=== PATIENT | male | born 1985 | race Caucasian/White ===

== ENCOUNTER 2022-12-21 15:17 | Inpatient (IN) | payer OTHER ==
[2022-12-21] MEDS ORDERED: KETOROLAC 15 MG/ML 1 ML VIAL IM STA (16:43)
[2022-12-21 16:51] LABS: Basophils % (A) 0 %; Eosinophils # (A) 0.1 k/uL (0-0.7); Eosinophils % (A) 1 %; HCT 40.7 % (39.0-53.0); HGB 14.2 gm/dL (13.0-17.5); Lymphocytes # (A) 1.5 k/uL (1.0-4.8); Lymphocytes % (A) 7 %; MCH 31.7 pg (25.0-35.0); MCHC 34.8 g/dL (31.0-37.0); MCV 91.2 fL (80.0-100.0); Mean Platelet Volume 8.4; Monocytes # (A) 1.5 k/uL (0-1.0); Monocytes % (A) 8 %; Neutrophils # (A) 16.4 k/uL (1.3-7.7); Neutrophils % (A) 82 %; Platelet Count 240 k/uL (150-450); RBC 4.47 m/uL (4.30-5.90); RDW 11.4 % (11.5-15.5)
--- NOTE | 2022-12-21 16:53 | ED ---
General Adult HPI - General Chief complaint: Skin/Abscess/Foreign Body Stated complaint: L groin pain Time Seen by Provider: 12/21/22 16:10 Source: patient, RN notes reviewed Mode of arrival: ambulatory Limitations: no limitations - History of Present Illness Initial comments: 37-year-old male with no significant past medical history presents to the emergency department with a chief complaint of left gluteal abscess. He reports that he noticed the abscess 5 days ago. He reports worsening pain and tenderness to the area. He denies any known fevers, chills, diaphoresis. He has never had this before. He reports his last bowel movement was this morning was normal for him. - Related Data Home Medications Medication Instructions Recorded Confirmed No Known Home Medications 12/21/22 12/21/22 Allergies Allergy/AdvReac Type Severity Reaction Status Date / Time No Known Allergies Allergy Verified 12/21/22 18:59 Review of Systems ROS Statement: Those systems with pertinent positive or pertinent negative responses have been documented in the HPI. ROS Other: All systems not noted in ROS Statement are negative. Past Medical History Past Medical History: No Reported History History of Any Multi-Drug Resistant Organisms: None Reported Past Surgical History: Orthopedic Surgery Additional Past Surgical History / Comment(s): rt knee Past Psychological History: No Psychological Hx Reported Smoking Status: Never smoker Past Alcohol Use History: None Reported Past Drug Use History: Marijuana General Exam Limitations: no limitations General appearance: alert, in no apparent distress Head exam: Present: atraumatic, normocephalic, normal inspection Eye exam: Present: normal appearance, PERRL, EOMI. Absent: scleral icterus, conjunctival injection, periorbital swelling ENT exam: Present: normal exam, mucous membranes moist Neck exam: Present: normal inspection. Absent: tenderness, meningismus, lymphadenopathy Respiratory exam: Present: normal lung sounds bilaterally. Absent: respiratory distress, wheezes, rales, rhonchi, stridor Cardiovascular Exam: Present: regular rate, normal rhythm, normal heart sounds. Absent: systolic murmur, diastolic murmur, rubs, gallop, clicks GI/Abdominal exam: Present: soft, normal bowel sounds. Absent: distended, tenderness, guarding, rebound, rigid Extremities exam: Present: normal inspection, full ROM, normal capillary refill. Absent: tenderness, pedal edema, joint swelling, calf tenderness Back exam: Present: normal inspection Neurological exam: Present: alert, oriented X3, CN II-XII intact Psychiatric exam: Present: normal affect, normal mood Skin exam: Present: warm, dry, intact, normal color. Absent: rash Course Vital Signs 12/21/22 12/21/22 12/21/22 15:35 18:48 19:37 Temperature 98.2 F 97.7 F 98.6 F Pulse Rate 112 H 98 82 Pulse Rate [ Supine] Respiratory 20 20 14 Rate Blood Pressure 136/73 132/76 126/78 Blood Pressure [Right Arm] O2 Sat by Pulse 98 98 99 Oximetry 12/21/22 21:20 Temperature 100.2 F H Pulse Rate Pulse Rate [ 107 H Supine] Respiratory 18 Rate Blood Pressure Blood Pressure 120/75 [Right Arm] O2 Sat by Pulse 95 Oximetry - Reevaluation(s) Reevaluation #1: 12/21/22 17:[address] Martel, general surgeon on-call who accepts the patient for admission Medical Decision Making - Medical Decision Making Was pt. sent in by a medical professional or institution (, PA, AUTOMOTIVE COLLISION REPAIR INSTRUCTOR, urgent care, hospital, or residential...) When possible be specific @ -[No] Did you speak to anyone other than the patient for history (EMS, parent, family, police, friend...)? What history was obtained from this source @ -[No] Did you review nursing and triage notes (agree or disagree)? Why? @ -[I reviewed and agree with nursing and triage notes] Were old charts reviewed (outside hosp., previous admission, EMS record, old EKG, old radiological studies, urgent care reports/EKG's, residential records)? Report findings @ -[No old charts were reviewed] Differential Diagnosis (chest pain, altered mental status, abdominal pain women, abdominal pain men, vaginal bleeding, weakness, fever, dyspnea, syncope, headache, dizziness, GI bleed, back pain, seizure, CVA, palpatations, mental health, musculoskeletal)? @ -[not applicable] EKG interpreted by me (3pts min.). @ -[As above] X-rays interpreted by me (1pt min.). @ -[None done] CT interpreted by me (1pt min.). @ -[None done] U/S interpreted by me (1pt. min.). @ -[None done] What testing was considered but not performed or refused? (CT, X-rays, U/S, labs)? Why? @ -[None] What meds were considered but not given or refused? Why? @ -[None] Did you discuss the management of the patient with other professionals (professionals i.e. , PA, AUTOMOTIVE COLLISION REPAIR INSTRUCTOR, lab, RT, psych nurse, 7th grade social studies teacher, spot worker, teacher, business services officer, disease case manager)? Give summary @ -[No] Was smoking cessation discussed for >3mins.? @ -[No] Was critical care preformed (if so, how long)? @ -[No] Were there social determinants of health that impacted care today? How? (Homelessness, low income, unemployed, alcoholism, drug addiction, transportation, low edu. Level, literacy, decrease access to med. care, detention, rehab)? @ -[No] Was there de-escalation of care discussed even if they declined (Discuss DNR or withdrawal of care, Hospice)? DNR status @ -[No] What co-morbidities impacted this encounter? (DM, HTN, Smoking, COPD, CAD, Cancer, CVA, ARF, Chemo, Hep., AIDS, mental health diagnosis, sleep apnea, morbid obesity)? @ -[None] Was patient admitted / discharged? Hospital course, mention meds given and route, prescriptions, significant lab abnormalities, going to OR and other pertinent info. @ -admission. This is a 37-year-old male presenting to the emergency department with rectal abscess. He had a thorough history and physical exam performed heart rate is tachycardic however lung sounds are clear to auscultation bilaterally abdomen is soft and nontender. Left gluteal muscle with marked tenderness. Patient had lab work and imaging performed which revealed: CT reveals Phlegmonous mass within the left perirectal region without any organized cessation of fluid Labs remarkable for WBC 20.0, hemoglobin 14.2 BMP unremarkable. I discussed the results in detail with the patient who verbalized understanding and all questions were addressed. He is agreeable with the plan for admission. Case discussed with Dr. Martel, general surgery who agrees and accepts the patient for admission case discussed with Dr. Gallegos who agrees with plan of care. he was started on Zosyn and vancomycin while in the ED. Undiagnosed new problem with uncertain prognosis? @ -[No] Drug Therapy requiring intensive monitoring for toxicity (Heparin, Nitro, Insulin, Cardizem)? @ -[No] Were any procedures done? @ -[No] Diagnosis/symptom? @ - gluteal abscess Acute, or Chronic, or Acute on Chronic? @ -acute Uncomplicated (without systemic symptoms) or Complicated (systemic symptoms)? @ -complicated Side effects of treatment? @ -[No] Exacerbation, Progression, or Severe Exacerbation? @ -[No] Poses a threat to life or bodily function? How? (Chest pain, [place], [place], pneumonia, PE, COPD, DKA, ARF, appy, cholecystitis, CVA, Diverticulitis, Homicidal, Suicidal, threat to staff... and all critical care pts) @ -high likelihood - Lab Data Result diagrams: 12/21/22 16:26 12/21/22 16:26 Lab Results 12/21/22 12/21/22 Range/Units 16:26 16:26 WBC 20.0 H (3.8-10.6) k/uL RBC 4.47 (4.30-5.90) m/uL Hgb 14.2 (13.0-17.5) gm/dL Hct 40.7 (39.0-53.0) % MCV 91.2 (80.0-100.0) fL MCH 31.7 (25.0-35.0) pg MCHC 34.8 (31.0-37.0) g/dL RDW 11.4 L (11.5-15.5) % Plt Count 240 (150-450) k/uL MPV 8.4 Neutrophils % 82 % Lymphocytes % 7 % Monocytes % 8 % Eosinophils % 1 % Basophils % 0 % Neutrophils # 16.4 H (1.3-7.7) k/uL Lymphocytes # 1.5 (1.0-4.8) k/uL Monocytes # 1.5 H (0-1.0) k/uL Eosinophils # 0.1 (0-0.7) k/uL Basophils # 0.0 (0-0.2) k/uL Sodium 137 (137-145) mmol/L Potassium 3.9 (3.5-5.1) mmol/L Chloride 99 (98-107) mmol/L Carbon Dioxide 26 (22-30) mmol/L Anion Gap 12 mmol/L BUN 16 (9-20) mg/dL Creatinine 1.14 (0.66-1.25) mg/dL Est GFR (CKD-EPI)AfAm >90 (>60 ml/min/1.73 sqM) Est GFR (CKD-EPI)NonAf 82 (>60 ml/min/1.73 sqM) Glucose 102 H (74-99) mg/dL Calcium 9.5 (8.4-10.2) mg/dL Disposition Clinical Impression: Perirectal abscess Disposition: ADMITTED IP TO THIS HOSP Condition: Fair Time of Disposition: 17:53
[2022-12-21 17:11] LABS: African American GFR (CKD) >90 (>60 ml/min/1.73 sqM); Anion Gap 12 mmol/L; Blood Urea Nitrogen 16 mg/dL (9-20); Calcium 9.5 mg/dL (8.4-10.2); Carbon Dioxide 26 mmol/L (22-30); Chloride 99 mmol/L (98-107); Glucose 102 mg/dL (74-99); Non-African American GFR(CKD) 82 (>60 ml/min/1.73 sqM); Potassium 3.9 mmol/L (3.5-5.1); Sodium 137 mmol/L (137-145)
--- NOTE | 2022-12-21 17:28 | CT ---
EXAMINATION TYPE: CT abdomen pelvis wo con CT DLP: 696.2 mGycm, Automated exposure control for dose reduction was used. DATE OF EXAM: 12/21/2022 5:04 PM COMPARISON: None CLINICAL INDICATION:Male, 37 years old with history of gluteal abscess; pain and lump around rectal a hemant TECHNIQUE: Axial CT of the abdomen and pelvis. Sagittal and coronal reformats were created on a [employer] workstation. Contrast used: None Oral contrast used: without Oral Contrast FINDINGS: LOWER CHEST: Unremarkable ABDOMEN LIVER: Unremarkable GALLBLADDER AND BILE DUCTS: Unremarkable. PANCREAS: Unremarkable. SPLEEN: Unremarkable. ADRENAL GLANDS: Unremarkable. KIDNEYS AND URETERS: No evidence of hydronephrosis or renal calculus. The ureters are unremarkable. PELVIS BLADDER: Unremarkable REPRODUCTIVE: Unremarkable. ABDOMEN & PELVIS STOMACH AND BOWEL: No evidence of bowel obstruction. The appendix normal. PERITONEUM/RETROPERITONEUM: No evidence of pneumoperitoneum or free fluid. VASCULATURE: No evidence of aortic aneurysm. MUSCULOSKELETAL: No acute osseous abnormalities LYMPH NODES: No gross evidence for lymphadenopathy. SOFT TISSUE/ABDOMINAL WALL: There is inflammation changes on the left perineal region on the rectum. No definitive organizing flu id collection. Area measures roughly 5.2 x 2.3 x 2.6 cm. Fat-containing umbilical hernia. IMPRESSION: 1. Phlegmonous mass within the left perirectal region without definitive organizing fluid collection . Evaluation is limited without IV contrast. 2. No acute intra-abdominal process.
[2022-12-21] MEDS ORDERED: PIPERACILLIN-TAZOBACTAM 3.375 GM in SODIUM CHLORIDE 0.9% 100 ML IVPB STA (17:43)
[2022-12-21] MEDS ORDERED: VANCOMYCIN 1,000 MG in SODIUM CHLORIDE 0.9% 250 ML IVPB STA (17:44)
[2022-12-21] MEDS ORDERED: NALOXONE 0.4 MG/ML 1 ML VIAL IV PRN (17:50)
[2022-12-21] MEDS ORDERED: VANCOMYCIN 1,500 MG in SODIUM CHLORIDE 0.9% 500 ML 500 ML IVPB STA (17:51)
[2022-12-21] MEDS ORDERED: ACETAMINOPHEN TAB 325 MG TAB PO PRN (17:51)
[2022-12-21] MEDS: SODIUM CHLORIDE 0.9% 1,000 ML IV SCH (18:32)
[2022-12-21] MEDS: MORPHINE SULFATE 4 MG/ML SYRINGE IV PRN ×2 (21:05→23:58)
[2022-12-22] MEDS: MORPHINE SULFATE 4 MG/ML SYRINGE IV PRN ×4 (03:11→13:18)
[2022-12-22 06:24] LABS: Basophils # (A) 0.1 k/uL (0-0.2); Basophils % (A) 0 %; Eosinophils # (A) 0.1 k/uL (0-0.7); Eosinophils % (A) 0 %; HGB 14.3 gm/dL (13.0-17.5); Lymphocytes # (A) 1.7 k/uL (1.0-4.8); Lymphocytes % (A) 10 %; MCH 31.6 pg (25.0-35.0); MCHC 34.1 g/dL (31.0-37.0); MCV 92.6 fL (80.0-100.0); Mean Platelet Volume 7.9; Monocytes # (A) 1.5 k/uL (0-1.0); Monocytes % (A) 9 %; Neutrophils # (A) 14.2 k/uL (1.3-7.7); Neutrophils % (A) 79 %; Platelet Count 241 k/uL (150-450); RBC 4.54 m/uL (4.30-5.90); RDW 11.4 % (11.5-15.5); WBC 17.9 k/uL (3.8-10.6)
[2022-12-22 06:32] LABS: African American GFR (CKD) >90 (>60 ml/min/1.73 sqM); Anion Gap 8 mmol/L; Blood Urea Nitrogen 11 mg/dL (9-20); Carbon Dioxide 29 mmol/L (22-30); Chloride 100 mmol/L (98-107); Glucose 96 mg/dL (74-99); Non-African American GFR(CKD) >90 (>60 ml/min/1.73 sqM); Sodium 137 mmol/L (137-145)
[2022-12-22] MEDS: SODIUM CHLORIDE 0.9% 1,000 ML IV SCH ×2 (07:50→20:49)
[2022-12-22] MEDS ORDERED: VANCOMYCIN 1,500 MG in SODIUM CHLORIDE 0.9% 500 ML 500 ML IVPB SCH (08:00)
[2022-12-22] MEDS: HYDROcodone/APAP 5-325MG 1 EACH TAB PO PRN ×3 (11:16→20:05)
[2022-12-22] MEDS: AMPICILLIN-SULBACTAM 3 GM in SODIUM CHLORIDE 0.9% 100 ML IVPB SCH ×2 (14:19→20:06)
[2022-12-22] MEDS ORDERED: IOPAMIDOL CONTRAST (ORAL USE) VIAL PO PRN (14:49)
[2022-12-22] MEDS: VANCOMYCIN 1,500 MG in SODIUM CHLORIDE 0.9% 500 ML 500 ML IVPB SCH ×2 (15:23→23:56)
--- NOTE | 2022-12-22 15:54 | P.GSHP ---
History of Present Illness H&P Date: 12/22/22 CHIEF COMPLAINT: Perirectal pain HISTORY OF PRESENT ILLNESS: This is a 37-year-old male who presented to hospital with complaints of perirectal pain on the left side for the last 5 days. Patient is noticed swelling and increasing pain in the left perirectal area. He reports no drainage. White count was elevated at 20 down to 17.9. He is on IV antibiotics. He did have a low-grade temp of 100.2 and was tachycardic. Computed tomography scan had shown evidence of a phlegmonous mass in the left perirectal region withfluid collection noted. Patient reports that he has had increase in swelling and redness since CAT scan yesterday. Patient does have report prior abscesses on the forehead and left arm that had to be lanced and drained. Denies any history of MRSA. Denies any history of diabetes. Patient seen and examined with Dr. gar PAST MEDICAL HISTORY: See below PAST SURGICAL HISTORY: See below MEDICATIONS: See below ALLERGIES: See below SOCIAL HISTORY: No illicit drug use. REVIEW OF SYSTEMS: CONSTITUTIONAL: Denies fever or chills. HEENT: Denies blurred vision, vision changes, or eye pain. Denies hemoptysis CARDIOVASCULAR: Denies chest pain or pressure. RESPIRATORY: No shortness of breath. GASTROINTESTINAL: See HPI for pertinent findings HEMATOLOGIC: Denies bleeding disorders. GENITOURINARY: Denies any blood in urine or increased urinary frequency. SKIN: Denies pruitis. Denies rash. PHYSICAL EXAM: VITAL SIGNS: Reviewed GENERAL: Well-developed in no acute distress. HEENT: No sclera icterus. Extraocular movements grossly intact. Moist buccal m ucosa. Head is atraumatic, normocephalic. No nasal drainage. ABDOMEN: Soft. Nondistended. Nontender NEUROLOGIC: Alert and oriented. Cranial nerves II through XII grossly intact. Rectal: Left perirectal area increased swelling induration and significant pain with palpation. No drainage noted. Erythema is starting to spread to the scrotal area LABORATORY DATA: WBC 20 down to 17.9 Hgb 14.3 platelets 241 sodium is 137 potassium 4.0 creatinine 0.91 lactic acid 1.0 IMAGING: Computed tomography scan abdomen and pelvis phlegmonous mass within the left perirectal region without definitive organizing fluid collection. No acute intra-abdominal process. Area measuring 5.2 x 2.3 x 2.6 cm ASSESSMENT: 1. Phlegmonous mass within the left perirectal region without definitive organizing fluid collection noted on CAT scan PLAN: -Continue to monitor closely -Repeat computed tomography scan abdomen and pelvis with oral and IV contrast tomorrow morning for further evaluation of any developing fluid collection -Continue IV antibiotics -Infectious disease on consult -Start regular diet -IV Dilaudid added for pain medication -[place] [address] added for oral pain medication -Apply warm compresses to perirectal area -Consult medicine service for medical management -GI prophylaxis protonix and DVT prophylaxis subcu heparin Physician Drafter Apprentice note has been reviewed by physician. Signing provider agrees with the documented findings, assessment, and plan of care. Past Medical History Past Medical History: No Reported History History of Any Multi-Drug Resistant Organisms: None Reported Past Surgical History: Orthopedic Surgery Additional Past Surgical History / Comment(s): rt knee Past Psychological History: No Psychological Hx Reported Smoking Status: Never smoker Past Alcohol Use History: None Reported Past Drug Use History: Marijuana Medications and Allergies Home Medications Medication Instructions Recorded Confirmed Type No Known Home Medications 12/21/22 12/21/22 History Allergies Allergy/AdvReac Type Severity Reaction Status Date / Time No Known Allergies Allergy Verified 12/21/22 18:59 Surgical - Exam Vital Signs Temp Pulse Resp BP Pulse Ox 98.2 F 112 H 20 136/73 98 12/21/22 15:35 12/21/22 15:35 12/21/22 15:35 12/21/22 15:35 12/21/22 15:35 Results - Labs 12/22/22 05:29 12/22/22 05:29 Abnormal Lab Results - Last 24 Hours (Table) 12/21/22 12/21/22 12/22/22 Range/Units 16:26 16:26 05:29 WBC 20.0 H 17.9 H (3.8-10.6) k/uL RDW 11.4 L 11.4 L (11.5-15.5) % Neutrophils # 16.4 H 14.2 H (1.3-7.7) k/uL Monocytes # 1.5 H 1.5 H (0-1.0) k/uL Glucose 102 H (74-99) mg/dL Diabetes panel 12/21/22 12/22/22 Range/Units 16:26 05:29 Sodium 137 137 (137-145) mmol/L Potassium 3.9 4.0 (3.5-5.1) mmol/L Chloride 99 100 (98-107) mmol/L Carbon Dioxide 26 29 (22-30) mmol/L BUN 16 11 (9-20) mg/dL Creatinine 1.14 0.91 (0.66-1.25) mg/dL Glucose 102 H 96 (74-99) mg/dL Calcium 9.5 9.0 (8.4-10.2) mg/dL Calcium panel 12/21/22 12/22/22 Range/Units 16:26 05:29 Calcium 9.5 9.0 (8.4-10.2) mg/dL Pituitary panel 12/21/22 12/22/22 Range/Units 16:26 05:29 Sodium 137 137 (137-145) mmol/L Potassium 3.9 4.0 (3.5-5.1) mmol/L Chloride 99 100 (98-107) mmol/L Carbon Dioxide 26 29 (22-30) mmol/L BUN 16 11 (9-20) mg/dL Creatinine 1.14 0.91 (0.66-1.25) mg/dL Glucose 102 H 96 (74-99) mg/dL Calcium 9.5 9.0 (8.4-10.2) mg/dL Adrenal panel 12/21/22 12/22/22 Range/Units 16:26 05:29 Sodium 137 137 (137-145) mmol/L Potassium 3.9 4.0 (3.5-5.1) mmol/L Chloride 99 100 (98-107) mmol/L Carbon Dioxide 26 29 (22-30) mmol/L BUN 16 11 (9-20) mg/dL Creatinine 1.14 0.91 (0.66-1.25) mg/dL Glucose 102 H 96 (74-99) mg/dL Calcium 9.5 9.0 (8.4-10.2) mg/dL
[2022-12-22] MEDS: HYDROmorphone 1 MG/ML 1 ML SYRINGE IVP PRN ×2 (18:24→21:20)
[2022-12-22] MEDS: HEPARIN SODIUM,PORCINE/PF 5,000 UNIT/0.5 ML SYRINGE SQ SCH (20:49)
--- NOTE | 2022-12-22 21:24 | P.CONS ---
History of Present Illness - Reason for Consult Consult date: 12/22/22 Gluteal abscess Requesting physician: Ceci Dozier - Chief Complaint Left gluteal pain and swelling x few days - History of Present Illness Patient is a 37-year-old male with no significant past medical history presenting to the ER for evaluation of pain to the left side of the perirectal area the pain has been going on for about 5 days patient has noticed increasing swelling in this area that has progressed to get worse and becoming more painful patient describes the pain to be dull aching to sharp with some throbbing characteristics almost 10 out of 10 in severity with no radiation and some relief with the pain medication patient denies having any drainage from the area patient on presentation to the hospital was afebrile subsequently did spike low- grade fever 100.2 F patient did have white count 20,000 with a left shift kidney function has been normal blood cultures obtained which are currently pending patient did have a CT of abdominal pelvis which did show phlegmon small with the left perirectal region without definite organizing fluid collection no acute intra-abdominal process patient was started on vancomycin infectious disease was consulted for further management of antibiotic therapy Review of Systems Positive point and negatives has been mentioned in the HPI, complete review of systems was performed and all other systems are negative Past Medical History Past Medical History: No Reported History History of Any Multi-Drug Resistant Organisms: None Reported Past Surgical History: Orthopedic Surgery Additional Past Surgical History / Comment(s): rt knee Past Psychological History: No Psychological Hx Reported Smoking Status: Never smoker Past Alcohol Use History: None Reported Past Drug Use History: Marijuana Medications and Allergies Home Medications Medication Instructions Recorded Confirmed Type Acetaminophen Tab [Tylenol Tab] 1,000 mg PO Q6HR PRN #30 tablet 12/30/22 Rx Amoxic-Pot Clav 875-125Mg 1 tab PO Q12HR 10 Days #20 tab 12/30/22 Rx [Augmentin 875-125] Famotidine [Pepcid] 20 mg PO DAILY #10 tablet 12/30/22 Rx Ibuprofen [Motrin] 600 mg PO Q8HR PRN #30 tab 12/30/22 Rx Allergies Allergy/AdvReac Type Severity Reaction Status Date / Time No Known Allergies Allergy Verified 12/21/22 18:59 Physical Exam Vitals: Vital Signs Temp Pulse Pulse Resp BP BP Pulse Ox 12/22/22 08:36 99 17 12/22/22 07:21 99.2 F 99 17 110/65 96 12/22/22 01:56 99.4 F 97 112/72 96 12/21/22 21:20 100.2 F H 107 H 18 120/75 95 12/21/22 19:37 98.6 F 82 14 126/78 99 12/21/22 18:48 97.7 F 98 20 132/76 98 12/21/22 15:35 98.2 F 112 H 20 136/73 98 Intake and Output 12/21/22 12/22/22 12/22/22 22:59 06:59 14:59 Other: Voiding Method Toilet # Voids 2 Weight 87.997 kg GENERAL DESCRIPTION: Middle-aged male lying in bed, no distress. No tachypnea or accessory muscle of respiration use. HEENT: Shows Pallor , no scleral icterus. Oral mucous membrane is dry. NECK: Trachea central, no thyromegaly. LUNGS: Unlabored breathing. Clear to auscultation anteriorly. No wheeze or crackle. HEART: S1, S2, regular rate and rhythm. No loud murmur ABDOMEN: Soft, left gluteus/rectal area did have swelling redness and induration EXTREMITIES: No edema of feet. SKIN: No rash, no masses palpable. NEUROLOGICAL: The patient is awake, alert, oriented x3, mood and affect normal. Results CBC & Chem 7: 12/28/22 05:58 12/30/22 05:57 Labs: Abnormal Lab Results - Last 24 Hours (Table) 12/21/22 12/21/22 12/22/22 Range/Units 16:26 16:26 05:29 WBC 20.0 H 17.9 H (3.8-10.6) k/uL RDW 11.4 L 11.4 L (11.5-15.5) % Neutrophils # 16.4 H 14.2 H (1.3-7.7) k/uL Monocytes # 1.5 H 1.5 H (0-1.0) k/uL Glucose 102 H (74-99) mg/dL Assessment and Plan (1) Perirectal abscess Status: Acute Code(s): K61.1 - RECTAL ABSCESS SNOMED Code(s): 87185338 Plan: 1patient was in the hospital with sepsis in this we did have a fever elevated white count source of left perirectal abscess will need to cover for both gram- positive skin yaima as well as gram-negative pathogen in view of the location of this abscess CT did not show any intra-abdominal abscess 2-patient benefit from surgical drainage to relieve the pressure pain as well as deep culture 3-patient to continue vancomycin we will add Unasyn while waiting for the work- up to be completed Family member at the bedside multiple questions concern answered We will follow on clinical condition and cultures to further adjust medication if needed Thank you for this consultation we will follow the patient along with you Time with Patient: Greater than 30
[2022-12-22] MEDS: IBUPROFEN 400 MG TAB PO PRN (22:51)
[2022-12-23] MEDS: HYDROmorphone 1 MG/ML 1 ML SYRINGE IVP PRN ×6 (00:02→21:01)
[2022-12-23] MEDS: AMPICILLIN-SULBACTAM 3 GM in SODIUM CHLORIDE 0.9% 100 ML IVPB SCH ×4 (02:01→21:00)
[2022-12-23] MEDS: HYDROcodone/APAP 5-325MG 1 EACH TAB PO PRN ×3 (02:01→21:00)
[2022-12-23] MEDS ORDERED: VANCOMYCIN TROUGH DUE 1 EACH MISC MISCELLANE ONE (07:00)
[2022-12-23] MEDS: PANTOPRAZOLE 40 MG TABLET PO SCH (07:11)
[2022-12-23] MEDS: HEPARIN SODIUM,PORCINE/PF 5,000 UNIT/0.5 ML SYRINGE SQ SCH ×2 (07:11→21:01)
[2022-12-23 07:57] LABS: African American GFR (CKD) >90 (>60 ml/min/1.73 sqM); Anion Gap 9 mmol/L; Blood Urea Nitrogen 8 mg/dL (9-20); Calcium 8.9 mg/dL (8.4-10.2); Carbon Dioxide 29 mmol/L (22-30); Chloride 99 mmol/L (98-107); Glucose 87 mg/dL (74-99); Non-African American GFR(CKD) >90 (>60 ml/min/1.73 sqM); Potassium 3.9 mmol/L (3.5-5.1); Sodium 137 mmol/L (137-145)
[2022-12-23] MEDS: IOPAMIDOL CONTRAST (ORAL USE) VIAL PO PRN ×2 (08:08→09:01)
[2022-12-23] MEDS: VANCOMYCIN 1,500 MG in SODIUM CHLORIDE 0.9% 500 ML 500 ML IVPB SCH ×3 (08:36→23:18)
[2022-12-23 09:28] LABS: Basophils % (A) 0 %; Eosinophils # (A) 0.1 k/uL (0-0.7); Eosinophils % (A) 1 %; HCT 41.3 % (39.0-53.0); HGB 14.3 gm/dL (13.0-17.5); Lymphocytes # (A) 1.5 k/uL (1.0-4.8); Lymphocytes % (A) 9 %; MCH 32.1 pg (25.0-35.0); MCHC 34.6 g/dL (31.0-37.0); MCV 92.9 fL (80.0-100.0); Mean Platelet Volume 8.5; Monocytes # (A) 1.4 k/uL (0-1.0); Monocytes % (A) 8 %; Neutrophils # (A) 14.1 k/uL (1.3-7.7); Neutrophils % (A) 81 %; Platelet Count 228 k/uL (150-450); RBC 4.45 m/uL (4.30-5.90); RDW 11.7 % (11.5-15.5); WBC 17.6 k/uL (3.8-10.6)
--- NOTE | 2022-12-23 09:38 | P.PN ---
Subjective Progress Note Date: 12/23/22 CHIEF COMPLAINT: Phlegmonous mass within the left perirectal region HISTORY OF PRESENT ILLNESS: Patient continues to have pain in the left perirectal area. There is been a slight decrease in the swelling and decrease in the erythema. Patient did have a low-grade temp of 99 during the night and is mildly tachycardic heart rate 104. WBC is staying around the same at 17.6 Hgb 14.3 platelets 228 sodium is 139 potassium 3.9 creatinine 0.76 PHYSICAL EXAM: VITAL SIGNS: Reviewed GENERAL: Well-developed in no acute distress. HEENT: No sclera icterus. Extraocular movements grossly intact. Moist buccal mucosa. Head is atraumatic, normocephalic. Hears conversational speech. No nasal drainage. NECK: Supple without lymphadenopathy. CHEST: Non-labored respirations and equal bilateral excursions. CARDIOVASCULAR: Palpable 2+ radial pulses. ABDOMEN: Soft. Nondistended. Nontender. MUSCULOSKELETAL: No clubbing or cyanosis. NEUROLOGIC: No focal or lateralizing signs. Cranial nerves II through XII grossly intact. PSYCH: Appropriate affect. Alert and oriented to person, place and time. SKIN: Perirectal area on the left side area of induration noted extreme pain with palpation. Erythema is decreased. It is no longer encroaching and the lower scrotal area. ASSESSMENT: 1. Phlegmonous mass within the left perirectal region without definitive organizing fluid collection noted on CAT scan PLAN: -Patient scheduled for computed tomography scan abdomen and pelvis with oral and IV contrast for further evaluation of any fluid collection in the perirectal region -Continue IV antibiotics per ID service -Continue supportive care -GI prophylaxis Protonix and DVT prophylaxis subcu heparin Physician Film Loader note has been reviewed by physician. Signing provider agrees with the documented findings, assessment, and plan of care. CHIEF COMPLAINT: Right buttock pain HISTORY OF PRESENT ILLNESS: The patient is a 37-year-old male who presents with left perirectal swelling. He reports moderate pain. Reports increased sensitivity. No acute fevers or chills. ROS: No reports of nausea and vomiting. No bowel movements. No fevers or chills. No new chest pain. No productive sputum PHYSICAL EXAM: VITAL SIGNS: Reviewed CONSTITUTIONAL: Well developed and in no acute distress. EYES: Conjuctivae without sclera icterus. Extraocular movements grossly intact. HEAD, EARS, NOSE, THROAT: Moist buccal mucosa. Head is atraumatic, normocephalic. Hears conversational speech. No nasal drainage. RESPIRATORY: Non-labored respirations and equal bilateral excursions. CARDIOVASCULAR: Palpable 2+ radial pulses. ABDOMEN: No peritonitis. MUSCULOSKELETAL: No gross deformity of the lower extremities noted. No clubbing. No cyanosis. SKIN: Good skin turgor. Well perfused. NEUROLOGIC: Cranial nerves II through XII grossly intact. No focal or lateralizing signs. PSYCH: Appropriate affect. Alert and oriented to person, place and time. CLINICAL LABS: Reviewed. WBC elevated over 17,000 STUDIES: CT abdomen and pelvis independent review demonstrates inflammation/induration of left perineum. No fluid collection identified. This is my independent interpretation. ASSESSMENT: 1. Left perirectal pain with cellulitis PLAN: 1. Continue IV antibiotics 2. Recommend sitz baths 3. No identifiable fluid collection for drainage. Findings were reviewed and discussed with patient and questions answered. 4. Monitor clinical course Objective - Vital Signs Vital signs: Vital Signs Temp 97.4 F L 12/23/22 07:20 Pulse 88 12/23/22 07:20 Resp 14 12/23/22 07:20 BP 165/70 12/23/22 07:20 Pulse Ox 98 12/23/22 07:20 FiO2 Intake & Output 12/22/22 12/23/22 12/23/22 18:59 06:59 18:59 Intake Total 1650 Balance 1650 Intake: Intake, IV Titration 1650 Amount Ampicillin-Sulbactam 3 gm 200 In Sodium Chloride 0.9% 100 ml @ 200 mls/hr IVPB Q6H [facility] Rx#:[id number] Sodium Chloride 0.9% 1, 450 000 ml @ 75 mls/hr IV . [id number] [facility] Rx#:[id number] Vancomycin 1,500 mg In 500 Sodium Chloride 0.9% 500 ml 500 ml @ 167 mls/hr IVPB Q12H [facility] Rx#: [id number] Vancomycin 1,500 mg In 500 Sodium Chloride 0.9% 500 ml 500 ml @ 167 mls/hr IVPB Q8H [facility] Rx#: [id number] Other: Voiding Method Toilet # Voids 1 3 - Labs CBC & Chem 7: 12/23/22 06:49 12/23/22 06:49 Labs: Abnormal Lab Results - Last 24 Hours (Table) 12/23/22 12/23/22 Range/Units 06:49 06:49 WBC 17.6 H (3.8-10.6) k/uL Neutrophils # 14.1 H (1.3-7.7) k/uL Monocytes # 1.4 H (0-1.0) k/uL BUN 8 L (9-20) mg/dL Microbiology - Last 24 Hours (Table) 12/21/22 18:41 Blood Culture - Preliminary Blood No Growth after 24 hours 12/21/22 18:18 Blood Culture - Preliminary Blood No Growth after 24 hours
--- NOTE | 2022-12-23 10:20 | CT ---
EXAMINATION TYPE: CT abdomen pelvis w con DATE OF EXAM: 12/23/2022 COMPARISON: 12/21/2022 HISTORY: Perirectal abscess. CT DLP: 1635.2 mGycm CONTRAST: CT scan of the abdomen and pelvis is performed with Oral Contrast and with IV Contrast, patient injec trever with 100ml mL of Isovue 300. FINDINGS: LUNG BASES-: No visible nodule. No infiltrate. LIVER/GB: No calcified gallstones. No space occupying hepatic lesion. Biliary tree is of normal ca liber. PANCREAS: No inflammation. No distinct mass. SPLEEN: No splenic enlargement. No lesion seen. ADRENALS: No nodule. No thickening. KIDNEYS/BLADDER: No hydronephrosis. No nephrolithiasis. No distinct renal mass. Urinary bladder g rossly unremarkable. BOWEL: Normal appendix. Normal bowel caliber. No inflammation. Again noted is left perirectal phleg monous change without definitive abscess. Area of phlegmon measures 5.2 x 2.8 cm versus 5.2 x 2.3 cm previously. Adjacent cellulitis noted as well. GENITAL ORGANS: No gross abnormality. LYMPH NODES: No greater than 1cm abdominal or pelvic lymph nodes are appreciated. AORTA: No significant abnormality. OSSEOUS STRUCTURES: No significant abnormality is seen. OTHER: No significant additional abnormality is seen. IMPRESSION: 1. No significant change in left perirectal phlegmon without organizing abscess.
[2022-12-23] MEDS ORDERED: LIDOCAINE 2% GEL 30 ML TUBE TOPICAL SCH (11:45)
[2022-12-23] MEDS: LIDOCAINE 2% GLYDO JELLY 6 ML APPL MISCELLANE SCH ×2 (14:09→21:01)
--- NOTE | 2022-12-23 14:45 | P.PN ---
Subjective Progress Note Date: 12/23/22 Principal diagnosis: Left perirectal abscess Patient is a 37-year-old male presenting to the hospital with left perirectal pain and discomfort patient has been diagnosed with a left perirectal cellulitis and phlegmon but CT 2 failed to reveal any evidence of abscess. On today's evaluation and that is 12/23/2022, the patient denies having any fever or any chills, the patient discomfort to the left perirectal area has slightly decreased in intensity patient denies having any nausea no vomiting no chest pain or shortness of breath or cough no diarrhea Objective - Vital Signs Vital signs: Vital Signs Temp 97.4 F L 12/23/22 07:20 Pulse 88 12/23/22 08:00 Resp 14 12/23/22 08:00 BP 165/70 12/23/22 07:20 Pulse Ox 98 12/23/22 07:20 FiO2 Intake & Output 12/22/22 12/23/22 12/23/22 18:59 06:59 18:59 Intake Total 1650 Balance 1650 Intake: Intake, IV Titration 1650 Amount Ampicillin-Sulbactam 3 gm 200 In Sodium Chloride 0.9% 100 ml @ 200 mls/hr IVPB Q6H [facility] Rx#:[id number] Sodium Chloride 0.9% 1, 450 000 ml @ 75 mls/hr IV . [id number] [facility] Rx#:[id number] Vancomycin 1,500 mg In 500 Sodium Chloride 0.9% 500 ml 500 ml @ 167 mls/hr IVPB Q12H [facility] Rx#: [id number] Vancomycin 1,500 mg In 500 Sodium Chloride 0.9% 500 ml 500 ml @ 167 mls/hr IVPB Q8H [facility] Rx#: [id number] Other: Voiding Method Toilet Toilet # Voids 1 3 - Exam GENERAL DESCRIPTION: Middle-age male lying in bed in no distress RESPIRATORY SYSTEM: Unlabored breathing , decreased breath sounds at bases HEART: S1 S2 regular rate and rhythm , ABDOMEN: Soft , no tenderness EXTREMITIES: No edema feet - Labs CBC & Chem 7: 12/23/22 06:49 12/23/22 06:49 Labs: Abnormal Lab Results - Last 24 Hours (Table) 12/23/22 12/23/22 Range/Units 06:49 06:49 WBC 17.6 H (3.8-10.6) k/uL Neutrophils # 14.1 H (1.3-7.7) k/uL Monocytes # 1.4 H (0-1.0) k/uL BUN 8 L (9-20) mg/dL Microbiology - Last 24 Hours (Table) 12/21/22 18:41 Blood Culture - Preliminary Blood No Growth after 24 hours 12/21/22 18:18 Blood Culture - Preliminary Blood No Growth after 24 hours Assessment and Plan (1) Perirectal abscess Current Visit: Yes Status: Acute Code(s): K61.1 - RECTAL ABSCESS SNOMED Code(s): 38693840 Plan: 1patient was in the hospital with sepsis in this we did have a fever elevated white count source of left perirectal abscess will need to cover for both gram- positive skin yaima as well as gram-negative pathogen in view of the location of this abscess CT did not show any intra-abdominal abscess, patient did have a repeat CT on 12/23/2022 did not show any organizing abscess formation/ 2-patient to continue vancomycin and Unasyn while watching his clinical course closely Patient did have multiple questions concern those were answered in Layman terms Time with Patient: Less than 30
[2022-12-23] MEDS ORDERED: ONDANSETRON 4 MG/2 ML VIAL IVP PRN (15:51)
[2022-12-23] MEDS: SODIUM CHLORIDE 0.9% 1,000 ML IV SCH ×2 (19:39→23:19)
--- NOTE | 2022-12-24 00:12 | P.CONS ---
History of Present Illness - Reason for Consult Consult date: 12/23/22 Medical management - Chief Complaint Rectal pain - History of Present Illness Patient is a 37-year-old male with no significant past medical history presents ER with complaints of rectal pain for the past 5 days. Patient has been having increasing pain mainly in the left perirectal area. Denies any purulent discharge or bleeding noted. Patient did have low-grade fever 100.2 and was tachycardic. Denies any abdominal pain. No nausea vomiting or diarrhea. Denies any recent illnesses. No chest pain or shortness of breath. Denies any history of IVDU. No prior history of hepatitis or HIV. CT of the abdomen pelvis showed phlegmonous mass within the left perirectal region without definitive organizing fluid collection. Evaluation is limited without contrast. No acute intra-abdominal process. Laboratory showed WBC 20.0 hemoglobin 14.1 platelets 240 Sodium 137 potassium 3.9 chloride 99 bicarb is 26 BUN 16 and creatinine 1.14 and calcium 9.2 blood sugar is 102 Review of Systems Constitutional: Patient denies any fever or chills . no Generalized weakness. Abdomen: Patient denied any nausea or vomiting or abd. pain. Rectal pain Cardiovascular: Patient denies any chest pain or short of breath no palpitations. Respiratory: patient denied any cough . no sputum production. No shortness of breath Neurologic: Patient denied any numbness or tingling headache. Musculoskeletal: Patient denies any complaints of joint swelling or deformity. Skin: Negative Psychiatric: Negative Endocrine: No heat or cold intolerance. No recent weight gain. Genitourinary: No dysuria or hematuria. All other 14 point ROS negative except the above Past Medical History Past Medical History: No Reported History History of Any Multi-Drug Resistant Organisms: None Reported Past Surgical History: Orthopedic Surgery Additional Past Surgical History / Comment(s): rt knee Past Psychological History: No Psychological Hx Reported Smoking Status: Never smoker Past Alcohol Use History: None Reported Past Drug Use History: Marijuana Medications and Allergies Home Medications Medication Instructions Recorded Confirmed Type No Known Home Medications 12/21/22 12/21/22 History Allergies Allergy/AdvReac Type Severity Reaction Status Date / Time No Known Allergies Allergy Verified 12/21/22 18:59 Physical Exam Vitals: Vital Signs Temp Pulse Resp BP Pulse Ox 12/23/22 08:00 88 14 12/23/22 07:20 97.4 F L 88 14 165/70 98 12/23/22 01:34 99.0 F 104 H 18 118/74 97 12/22/22 19:30 98.1 F 91 16 128/81 99 12/22/22 17:04 96 20 12/22/22 16:52 98.0 F 96 20 107/64 96 12/22/22 14:23 97 17 12/22/22 13:54 98.0 F 97 18 114/72 96 Intake and Output 12/22/22 12/23/22 12/23/22 22:59 06:59 14:59 Intake Total 1650 Balance 1650 Intake: Intake, IV Titration 1650 Amount Ampicillin-Sulbactam 3 gm 200 In Sodium Chloride 0.9% 100 ml @ 200 mls/hr IVPB Q6H [facility] Rx#:[id number] Sodium Chloride 0.9% 1, 450 000 ml @ 75 mls/hr IV . [id number] [facility] Rx#:[id number] Vancomycin 1,500 mg In 500 Sodium Chloride 0.9% 500 ml 500 ml @ 167 mls/hr IVPB Q12H [facility] Rx#: [id number] Vancomycin 1,500 mg In 500 Sodium Chloride 0.9% 500 ml 500 ml @ 167 mls/hr IVPB Q8H [facility] Rx#: [id number] Other: Voiding Method Toilet # Voids 1 3 PHYSICAL EXAMINATION: Patient is lying in the bed comfortably, no acute distress, awake alert and oriented.. HEENT: Normocephalic. Neck is supple. Pupils reactive. Nostrils clear. Oral cavity is moist. Neck reveals no JVD, carotid bruits, or thyromegaly. CHEST EXAMINATION: Trachea is central. Symmetrical expansion. Lung sanchez clear to auscultation and percussion. CARDIAC: Normal S1, S2 with no gallops. No murmurs ABDOMEN: Soft. Bowel sounds present. Nontender. No organomegaly. No abdominal bruits. Extremities: reveal no edema. No clubbing or cyanosis Neurologically awake, alert, oriented x3 with well-coordinated movements. No focal deficits noted Skin: No rash or skin lesions. Psychiatric: Coperative. Nonsuicidal, Musculoskeletal: No joint swelling or deformity. Normal range of motion. Results CBC & Chem 7: 12/23/22 06:49 04/13/23 06:49 Labs: Abnormal Lab Results - Last 24 Hours (Table) 12/23/22 12/23/22 Range/Units 06:49 06:49 WBC 17.6 H (3.8-10.6) k/uL Neutrophils # 14.1 H (1.3-7.7) k/uL Monocytes # 1.4 H (0-1.0) k/uL BUN 8 L (9-20) mg/dL Microbiology - Last 24 Hours (Table) 12/21/22 18:41 Blood Culture - Preliminary Blood No Growth after 24 hours 12/21/22 18:18 Blood Culture - Preliminary Blood No Growth after 24 hours Assessment and Plan Assessment: Rectal pain with CT finding of phlegmonous mass within the left periatrial region. No definitive abscess noted. Sepsis secondary to above. DVT prophylaxis with heparin subcu Plan: Patient will be continued on antibiotics , unasyn and vancomycin. Continue with pain management. GI and DVT prophylaxis. Follow-up culture report and follow- up closely. ID is on board. Further recommendations based on the clinical course. Thank you for your consult.
[2022-12-24] MEDS: HYDROmorphone 1 MG/ML 1 ML SYRINGE IVP PRN ×3 (01:11→20:24)
[2022-12-24] MEDS: HYDROcodone/APAP 5-325MG 1 EACH TAB PO PRN ×4 (01:11→18:01)
[2022-12-24] MEDS: AMPICILLIN-SULBACTAM 3 GM in SODIUM CHLORIDE 0.9% 100 ML IVPB SCH ×4 (02:40→23:41)
[2022-12-24] MEDS: IBUPROFEN 400 MG TAB PO PRN (04:45)
[2022-12-24] MEDS: PANTOPRAZOLE 40 MG TABLET PO SCH (06:22)
[2022-12-24] MEDS: LIDOCAINE 2% GLYDO JELLY 6 ML APPL MISCELLANE SCH ×2 (08:29→20:52)
[2022-12-24] MEDS: HEPARIN SODIUM,PORCINE/PF 5,000 UNIT/0.5 ML SYRINGE SQ SCH ×2 (08:29→20:52)
[2022-12-24 08:41] LABS: African American GFR (CKD) >90 (>60 ml/min/1.73 sqM); Non-African American GFR(CKD) >90 (>60 ml/min/1.73 sqM)
[2022-12-24] MEDS: VANCOMYCIN 1,500 MG in SODIUM CHLORIDE 0.9% 500 ML 500 ML IVPB SCH ×2 (10:17→17:52)
[2022-12-24] MEDS: SODIUM CHLORIDE 0.9% 1,000 ML IV SCH (10:29)
[2022-12-24 11:14] LABS: HCT 38.3 % (39.6-50.0); HGB 12.7 g/dL (13.0-17.0); MCH 30.8 pg (27.0-32.0); MCHC 33.2 g/dL (32.0-37.0); Mean Platelet Volume 10.8 fL (9.5-12.2); NRBC Per 100 WBC 0 /100 WBCS (0.0-0.0); Platelet Count 250 X 10*3/uL (140-440); RBC 4.12 X 10*6/uL (4.40-5.60); RDW 11.4 % (11.5-14.5); WBC 16.11 X 10*3/uL (4.50-10.00)
[2022-12-24] MEDS: KETOROLAC 15 MG/ML 1 ML VIAL IVP SCH ×3 (13:24→23:55)
--- NOTE | 2022-12-24 13:30 | P.PN ---
Subjective Progress Note Date: 12/24/22 Principal diagnosis: Left perirectal abscess Patient is a 37-year-old male presenting to the hospital with left perirectal pain and discomfort patient has been diagnosed with a left perirectal cellulitis and phlegmon but CT 2 failed to reveal any evidence of abscess. On today's evaluation and that is 12/24/2022, the patient remains to be afebrile, the patient pain to the left perirectal area has decreased in intensity, there patient denies having any nausea no vomiting no chest pain or shortness of breath or cough no diarrhea Objective - Vital Signs Vital signs: Vital Signs Temp 97.9 F 12/24/22 07:09 Pulse 74 12/24/22 07:09 Resp 16 12/24/22 09:12 BP 110/63 12/24/22 07:09 Pulse Ox 96 12/24/22 07:09 FiO2 Intake & Output 12/23/22 12/24/22 12/24/22 18:59 06:59 18:59 Intake Total 1820 Balance 1820 Intake: Intake, IV Titration 1100 Amount Ampicillin-Sulbactam 3 gm 200 In Sodium Chloride 0.9% 100 ml @ 200 mls/hr IVPB Q6H [facility] Rx#:[id number] Sodium Chloride 0.9% 1, 400 000 ml @ 75 mls/hr IV . [id number] [facility] Rx#:[id number] Vancomycin 1,500 mg In 500 Sodium Chloride 0.9% 500 ml 500 ml @ 167 mls/hr IVPB Q8H [facility] Rx#: [id number] Oral 720 Other: Voiding Method Toilet Toilet # Voids 2 - Exam GENERAL DESCRIPTION: Middle-age male lying in bed in no distress RESPIRATORY SYSTEM: Unlabored breathing , decreased breath sounds at bases HEART: S1 S2 regular rate and rhythm , ABDOMEN: Soft , no tenderness, left perirectal area induration has slightly decreased and not as tender EXTREMITIES: No edema feet - Labs CBC & Chem 7: 12/24/22 07:29 12/24/22 07:29 Labs: Abnormal Lab Results - Last 24 Hours (Table) 12/24/22 Range/Units 07:29 WBC 16.11 H (4.50-10.00) X 10*3/uL RBC 4.12 L (4.40-5.60) X 10*6/uL Hgb 12.7 L (13.0-17.0) g/dL Hct 38.3 L (39.6-50.0) % RDW 11.4 L (11.5-14.5) % Microbiology - Last 24 Hours (Table) 12/21/22 18:41 Blood Culture - Preliminary Blood No Growth after 48 hours 12/21/22 18:18 Blood Culture - Preliminary Blood No Growth after 48 hours Assessment and Plan (1) Perirectal abscess Current Visit: Yes Status: Acute Code(s): K61.1 - RECTAL ABSCESS SNOMED Code(s): 35925729 Plan: 1patient was in the hospital with sepsis in this we did have a fever elevated white count source of left perirectal abscess will need to cover for both gram-positive skin yaima as well as gram-negative pathogen in view of the location of this abscess CT did not show any intra-abdominal abscess, patient did have a repeat CT on 12/23/2022 did not show any organizing abscess formation 2-patient seemed to have shown some clinical improvement as the patient is afebr ile pain has improved, to continue vancomycin and Unasyn Patient did have multiple questions concern those were answered in Layman terms in the presence of patient RN Time with Patient: Less than 30
[2022-12-24 13:47] LABS: Basophils # (A) 0.05 X 10*3/uL (0.00-0.10); Basophils % (A) 0.3 %; Eosinophils # (A) 0.18 X 10*3/uL (0.04-0.35); Eosinophils % (A) 1.1 %; Immature Grans, Automated 0.4 %; Lymphocytes # (A) 1.65 X 10*3/uL (0.90-5.00); Lymphocytes % (A) 10.2 %; Monocytes # (A) 1.97 X 10*3/uL (0.20-1.00); Monocytes % (A) 12.2 %; Neutrophils # (A) 12.19 X 10*3/uL (1.80-7.70); Neutrophils % (A) 75.8 %; RBC Morphology NORMAL
--- NOTE | 2022-12-24 14:53 | P.PN ---
Subjective Progress Note Date: 12/24/22 CHIEF COMPLAINT: Phlegmonous mass within the left perirectal region HISTORY OF PRESENT ILLNESS: Patient reports his symptoms are improving. He has less pain he is able to move easier. As of the areas becoming more firm and not as large. Afebrile. WBC is trending downwards from 17-16.11 PHYSICAL EXAM: VITAL SIGNS: Reviewed GENERAL: Well-developed in no acute distress. HEENT: No sclera icterus. Extraocular movements grossly intact. Moist buccal mucosa. Head is atraumatic, normocephalic. Hears conversational speech. No nasal drainage. NECK: Supple without lymphadenopathy. CHEST: Non-labored respirations and equal bilateral excursions. CARDIOVASCULAR: Palpable 2+ radial pulses. ABDOMEN: Soft. Nondistended. Nontender. MUSCULOSKELETAL: No clubbing or cyanosis. NEUROLOGIC: No focal or lateralizing signs. Cranial nerves II through XII grossly intact. PSYCH: Appropriate affect. Alert and oriented to person, place and time. ASSESSMENT: 1. Left perirectal pain with cellulitis and phlegmon PLAN: -Patient informed again that there is no evidence of fluid collection to drain on CT scan -No surgical intervention planned -Continue IV antibiotics -Continue sitz baths -GI prophylaxis Protonix and DVT prophylaxis subcu heparin Physician Patient Intake Coordinator note has been reviewed by physician. Signing provider agrees with the documented findings, assessment, and plan of care. CHIEF COMPLAINT: Right buttock pain HISTORY OF PRESENT ILLNESS: The patient is a 37-year-old male who presents with left perirectal swelling. Reports improvement of his symptoms including pain. He is ambulating further. He reports decrease use of Dilaudid. He has refused using sitz bath. Reports area of more firm and less tender. ROS: No reports of nausea and vomiting. No bowel movements. No fevers or chills. No new chest pain. No productive sputum PHYSICAL EXAM: VITAL SIGNS: Reviewed CONSTITUTIONAL: Well developed and in no acute distress. EYES: Conjuctivae without sclera icterus. Extraocular movements grossly intact. HEAD, EARS, NOSE, THROAT: Moist buccal mucosa. Head is atraumatic, normocephalic. Hears conversational speech. No nasal drainage. RESPIRATORY: Non-labored respirations and equal bilateral excursions. CARDIOVASCULAR: Palpable 2+ radial pulses. ABDOMEN: No peritonitis. MUSCULOSKELETAL: No gross deformity of the lower extremities noted. No clubbing. No cyanosis. SKIN: Good skin turgor. Well perfused. NEUROLOGIC: Cranial nerves II through XII grossly intact. No focal or lateralizing signs. PSYCH: Appropriate affect. Alert and oriented to person, place and time. CLINICAL LABS: Reviewed. WBC elevated over 17,000, down to 16,000 ASSESSMENT: 1. Left perirectal pain with cellulitis PLAN: 1. Patient encouraged to sitz bath to accelerate healing. Overall reports improvement. 2. Continue antibiotics Objective - Vital Signs Vital signs: Vital Signs Temp 97.9 F 12/24/22 07:09 Pulse 74 12/24/22 07:09 Resp 16 12/24/22 09:12 BP 110/63 12/24/22 07:09 Pulse Ox 96 12/24/22 07:09 FiO2 Intake & Output 12/23/22 12/24/22 12/24/22 18:59 06:59 18:59 Intake Total 1820 Balance 1820 Intake: Intake, IV Titration 1100 Amount Ampicillin-Sulbactam 3 gm 200 In Sodium Chloride 0.9% 100 ml @ 200 mls/hr IVPB Q6H [facility] Rx#:[id number] Sodium Chloride 0.9% 1, 400 000 ml @ 75 mls/hr IV . [id number] [facility] Rx#:[id number] Vancomycin 1,500 mg In 500 Sodium Chloride 0.9% 500 ml 500 ml @ 167 mls/hr IVPB Q8H [facility] Rx#: [id number] Oral 720 Other: Voiding Method Toilet Toilet # Voids 2 - Labs CBC & Chem 7: 12/24/22 07:29 12/24/22 07:29 Labs: Abnormal Lab Results - Last 24 Hours (Table) 12/24/22 Range/Units 07:29 WBC 16.11 H (4.50-10.00) X 10*3/uL RBC 4.12 L (4.40-5.60) X 10*6/uL Hgb 12.7 L (13.0-17.0) g/dL Hct 38.3 L (39.6-50.0) % RDW 11.4 L (11.5-14.5) % Microbiology - Last 24 Hours (Table) 12/21/22 18:41 Blood Culture - Preliminary Blood No Growth after 48 hours 12/21/22 18:18 Blood Culture - Preliminary Blood No Growth after 48 hours
--- NOTE | 2022-12-24 23:09 | P.PN ---
Subjective Progress Note Date: 12/24/22 Patient is a 37-year-old male with no significant past medical history presents ER with complaints of rectal pain for the past 5 days. Patient has been having increasing pain mainly in the left perirectal area. Denies any purulent discharge or bleeding noted. Patient did have low-grade fever 100.2 and was tachycardic. Denies any abdominal pain. No nausea vomiting or diarrhea. Denies any recent illnesses. No chest pain or shortness of breath. Denies any history of IVDU. No prior history of hepatitis or HIV. CT of the abdomen pelvis showed phlegmonous mass within the left perirectal region without definitive organizing fluid collection. Evaluation is limited without contrast. No acute intra-abdominal process. Laboratory showed WBC 20.0 hemoglobin 14.1 platelets 240 Sodium 137 potassium 3.9 chloride 99 bicarb is 26 BUN 16 and creatinine 1.14 and calcium 9.2 blood sugar is 102 12/24/2022 Patient is currently lying in the bed. Awake alert and oriented x3. Rectal pain is improving. Able to pass flatus and no bowel movement last few days. Patient has been afebrile. Leukocytosis is improving slowly. Denied any nausea or vomiting or abdominal pain or diarrhea. No chest pain or shortness of breath. Laboratory test showed WBC 16.1 hemoglobin 12.7 and platelets 250 ID and general surgery is on board. Currently on IV antibiotics with Unasyn. Objective - Vital Signs Vital signs: Vital Signs Temp 97.9 F 12/24/22 07:09 Pulse 74 12/24/22 07:09 Resp 16 12/24/22 09:12 BP 110/63 12/24/22 07:09 Pulse Ox 96 12/24/22 07:09 FiO2 Intake & Output 12/23/22 12/24/22 12/24/22 18:59 06:59 18:59 Intake Total 1820 Balance 1820 Intake: Intake, IV Titration 1100 Amount Ampicillin-Sulbactam 3 gm 200 In Sodium Chloride 0.9% 100 ml @ 200 mls/hr IVPB Q6H [facility] Rx#:[id number] Sodium Chloride 0.9% 1, 400 000 ml @ 75 mls/hr IV . [id number] [facility] Rx#:[id number] Vancomycin 1,500 mg In 500 Sodium Chloride 0.9% 500 ml 500 ml @ 167 mls/hr IVPB Q8H [facility] Rx#: [id number] Oral 720 Other: Voiding Method Toilet Toilet # Voids 2 - Exam PHYSICAL EXAMINATION: Patient is lying in the bed comfortably, no acute distress, awake alert and oriented.. HEENT: Normocephalic. Neck is supple. Pupils reactive. Nostrils clear. Oral cavity is moist. Neck reveals no JVD, carotid bruits, or thyromegaly. CHEST EXAMINATION: Trachea is central. Symmetrical expansion. Lung sanchez clear to auscultation and percussion. CARDIAC: Normal S1, S2 with no gallops. No murmurs ABDOMEN: Soft. Bowel sounds present. Nontender. No organomegaly. No abdominal bruits. Extremities: reveal no edema. No clubbing or cyanosis Neurologically awake, alert, oriented x3 with well-coordinated movements. No focal deficits noted Skin: No rash or skin lesions. Psychiatric: Coperative. Nonsuicidal, Musculoskeletal: No joint swelling or deformity. Normal range of motion. - Labs CBC & Chem 7: 12/24/22 07:29 12/24/22 07:29 Labs: Abnormal Lab Results - Last 24 Hours (Table) 12/24/22 Range/Units 07:29 WBC 16.11 H (4.50-10.00) X 10*3/uL RBC 4.12 L (4.40-5.60) X 10*6/uL Hgb 12.7 L (13.0-17.0) g/dL Hct 38.3 L (39.6-50.0) % RDW 11.4 L (11.5-14.5) % Microbiology - Last 24 Hours (Table) 12/21/22 18:41 Blood Culture - Preliminary Blood No Growth after 48 hours 12/21/22 18:18 Blood Culture - Preliminary Blood No Growth after 48 hours Assessment and Plan Assessment: Rectal pain with CT finding of phlegmonous mass within the left periatrial re gion. No definitive abscess noted. Sepsis secondary to above. DVT prophylaxis with heparin subcu Plan: Patient will be continued on antibiotics , unasyn and vancomycin. Continue with pain management. GI and DVT prophylaxis. Follow-up culture report and follow- up closely. ID is on board.
[2022-12-25] MEDS: HYDROmorphone 1 MG/ML 1 ML SYRINGE IVP PRN ×6 (00:27→20:34)
[2022-12-25] MEDS: AMPICILLIN-SULBACTAM 3 GM in SODIUM CHLORIDE 0.9% 100 ML IVPB SCH ×4 (02:20→20:35)
[2022-12-25] MEDS: SODIUM CHLORIDE 0.9% 1,000 ML IV SCH ×2 (02:21→20:23)
[2022-12-25] MEDS: KETOROLAC 15 MG/ML 1 ML VIAL IVP SCH ×3 (06:02→18:32)
[2022-12-25] MEDS: PANTOPRAZOLE 40 MG TABLET PO SCH (06:03)
[2022-12-25] MEDS: HEPARIN SODIUM,PORCINE/PF 5,000 UNIT/0.5 ML SYRINGE SQ SCH ×2 (06:54→20:24)
[2022-12-25 07:58] LABS: Basophils % (A) 0 %; Eosinophils # (A) 0.2 k/uL (0-0.7); Eosinophils % (A) 2 %; HCT 39.5 % (39.0-53.0); HGB 13.3 gm/dL (13.0-17.5); Lymphocytes # (A) 1.9 k/uL (1.0-4.8); Lymphocytes % (A) 16 %; MCH 31.5 pg (25.0-35.0); MCHC 33.7 g/dL (31.0-37.0); MCV 93.5 fL (80.0-100.0); Mean Platelet Volume 8.1; Monocytes # (A) 0.9 k/uL (0-1.0); Monocytes % (A) 8 %; Neutrophils % (A) 71 %; Platelet Count 283 k/uL (150-450); RBC 4.23 m/uL (4.30-5.90); RDW 11.3 % (11.5-15.5); WBC 11.3 k/uL (3.8-10.6)
[2022-12-25 08:15] LABS: ALT 23 U/L (4-49); AST 25 U/L (17-59); African American GFR (CKD) >90 (>60 ml/min/1.73 sqM); Albumin 3.3 g/dL (3.5-5.0); Albumin/Globulin Ratio 1.1; Alkaline Phosphatase 69 U/L (38-126); Anion Gap 9 mmol/L; Blood Urea Nitrogen 8 mg/dL (9-20); Calcium 8.5 mg/dL (8.4-10.2); Carbon Dioxide 27 mmol/L (22-30); Chloride 103 mmol/L (98-107); Glucose 78 mg/dL (74-99); Non-African American GFR(CKD) >90 (>60 ml/min/1.73 sqM); Potassium 3.8 mmol/L (3.5-5.1); Sodium 139 mmol/L (137-145); Total Bilirubin 0.6 mg/dL (0.2-1.3); Total Protein 6.3 g/dL (6.3-8.2)
[2022-12-25] MEDS: VANCOMYCIN 1,500 MG in SODIUM CHLORIDE 0.9% 500 ML 500 ML IVPB SCH ×2 (08:57→15:48)
[2022-12-25] MEDS: LIDOCAINE 2% GLYDO JELLY 6 ML APPL MISCELLANE SCH ×2 (11:06→20:24)
--- NOTE | 2022-12-25 13:23 | P.PN ---
Subjective Progress Note Date: 12/25/22 CHIEF COMPLAINT: Right buttock pain HISTORY OF PRESENT ILLNESS: The patient is a 37-year-old male who presents with left buttock/perineal mass. He reports moderate decrease in pain. Per discussion with nursing team, patient encouraged to use sitz bath for which was initially refusing. No fevers or chills. He reports firmness along the perineum. Mother at bedside. Patient seen with this nurse. ROS: No reports of nausea and vomiting. No fevers or chills. No new chest pain. No productive sputum PHYSICAL EXAM: VITAL SIGNS: Reviewed CONSTITUTIONAL: Well developed and in no acute distress. EYES: Conjuctivae without sclera icterus. Extraocular movements grossly intact. HEAD, EARS, NOSE, THROAT: Moist buccal mucosa. Head is atraumatic, normocephalic. Hears conversational speech. No nasal drainage. RESPIRATORY: Non-labored respirations and equal bilateral excursions. CARDIOVASCULAR: Palpable 2+ radial pulses. ABDOMEN: No peritonitis. BUTTOCK: Left perineum swelling 6 x 4 cm without involvement of the scrotum. No palpable fluctuance. Minimally tender. Outlying with marker noted. MUSCULOSKELETAL: No gross deformity of the lower extremities noted. No clubbing. No cyanosis. SKIN: Good skin turgor. Well perfused. NEUROLOGIC: Cranial nerves II through XII grossly intact. No focal or lateralizing signs. PSYCH: Appropriate affect. Alert and oriented to person, place and time. CLINICAL LABS: Reviewed. WBC elevated over 17,000, down to 16,000, today 11,000 ASSESSMENT: 1. Left perirectal pain with cellulitis 2. Left buttock cellulitis/swelling PLAN: 1. I had extended discussion with the patient including his mother bedside and his nurse at bedside regarding goals of care, from [id number] with all questions described reviewed. 2. Patient reports concern for change of swelling and new firmness of the mass of the left buttock. Ultrasound of the perineum ordered. 3. I personally discussed case with infectious disease specialist where alternatives of ultrasound-guided drainage reviewed. 4. Continue sitz baths twice a day 5. Continue antibiotics 6. Patient described that at least 1 week or more needed for pain to improve and/or spontaneous drainage to occur Objective - Vital Signs Vital signs: Vital Signs Temp 98.7 F 12/25/22 07:08 Pulse 87 12/25/22 07:08 Resp 16 12/25/22 07:08 BP 121/73 12/25/22 07:08 Pulse Ox 97 12/25/22 07:08 FiO2 Intake & Output 12/24/22 12/25/22 12/25/22 18:59 06:59 18:59 Intake Total 200 Balance 200 Intake: Oral 200 Other: Voiding Method Toilet # Voids 3 3 - Labs CBC & Chem 7: 12/25/22 07:39 12/25/22 07:22 Labs: Abnormal Lab Results - Last 24 Hours (Table) 12/24/22 12/25/22 12/25/22 Range/Units 07:29 07:22 07:39 WBC 11.3 H (3.8-10.6) k/uL RBC 4.23 L (4.30-5.90) m/uL RDW 11.3 L (11.5-15.5) % Immature Gran # 0.07 H (0.00-0.04) X 10*3/uL Neutrophils # 12.19 H 8.0 H (1.80-7.70) X 10*3/uL Monocytes # 1.97 H (0.20-1.00) X 10*3/uL BUN 8 L (9-20) mg/dL Albumin 3.3 L (3.5-5.0) g/dL Microbiology - Last 24 Hours (Table) 12/21/22 18:41 Blood Culture - Preliminary Blood No Growth after 72 hours 12/21/22 18:18 Blood Culture - Preliminary Blood No Growth after 72 hours
[2022-12-25] MEDS: HYDROcodone/APAP 5-325MG 1 EACH TAB PO PRN (18:49)
--- NOTE | 2022-12-25 19:01 | US ---
EXAMINATION TYPE: US mass soft tissue chest/back DATE OF EXAM: 12/25/2022 COMPARISON: CT 12/23/22 CLINICAL INDICATION: Male, 37 years old with history of Left buttock/perineal mass; Mass/ redness lef t buttock/perineal area x about 10 days. Scanned area where skin was marked. Technique: Grayscale and color Doppler imaging of the left buttock/perineal mass Findings: Scanned area of concern within left medial buttock/perineal area. Questionable complex area seen measuring 4.2 x 2.5 x 2.0 cm. IMPRESSION: Complex fluid collection compatible with abscess. Similar to findings on prior CT 023
[2022-12-26] MEDS: HYDROmorphone 1 MG/ML 1 ML SYRINGE IVP PRN ×3 (00:21→20:53)
[2022-12-26] MEDS: VANCOMYCIN 1,500 MG in SODIUM CHLORIDE 0.9% 500 ML 500 ML IVPB SCH ×2 (00:22→08:50)
[2022-12-26] MEDS: AMPICILLIN-SULBACTAM 3 GM in SODIUM CHLORIDE 0.9% 100 ML IVPB SCH ×4 (00:23→20:50)
[2022-12-26] MEDS: KETOROLAC 15 MG/ML 1 ML VIAL IVP SCH ×4 (01:28→19:41)
[2022-12-26] MEDS: SODIUM CHLORIDE 0.9% 1,000 ML IV SCH ×2 (05:54→19:41)
[2022-12-26] MEDS: PANTOPRAZOLE 40 MG TABLET PO SCH (06:51)
[2022-12-26] MEDS ORDERED: VANCOMYCIN TROUGH DUE 1 EACH MISC MISCELLANE ONE (07:00)
[2022-12-26 07:34] LABS: African American GFR (CKD) >90 (>60 ml/min/1.73 sqM); Non-African American GFR(CKD) >90 (>60 ml/min/1.73 sqM)
[2022-12-26] MEDS: HEPARIN SODIUM,PORCINE/PF 5,000 UNIT/0.5 ML SYRINGE SQ SCH ×2 (07:43→20:43)
[2022-12-26] MEDS: HYDROcodone/APAP 5-325MG 1 EACH TAB PO PRN ×2 (08:22→22:07)
[2022-12-26] MEDS: LIDOCAINE 2% GLYDO JELLY 6 ML APPL MISCELLANE SCH ×2 (08:53→20:43)
--- NOTE | 2022-12-26 10:53 | P.PN ---
Subjective Progress Note Date: 12/25/22 Principal diagnosis: Left perirectal abscess Patient is a 37-year-old male presenting to the hospital with left perirectal pain and discomfort patient has been diagnosed with a left perirectal cellulitis and phlegmon but CT 2 failed to reveal any evidence of abscess. On today's evaluation and that is 12/25/2022, the patient continues to be afebrile, the patient pain to the left perirectal area has decreased in intensity, there patient denies having any nausea no vomiting , the patient denies chest pain or shortness of breath or cough no diarrhea Objective - Vital Signs Vital signs: Vital Signs Temp 98.7 F 12/25/22 07:08 Pulse 87 12/25/22 07:08 Resp 16 12/25/22 07:08 BP 121/73 12/25/22 07:08 Pulse Ox 97 12/25/22 07:08 FiO2 Intake & Output 12/24/22 12/25/22 12/25/22 18:59 06:59 18:59 Intake Total 200 Balance 200 Intake: Oral 200 Other: Voiding Method Toilet # Voids 3 3 - Exam GENERAL DESCRIPTION: Middle-age male lying in bed in no distress RESPIRATORY SYSTEM: Unlabored breathing , decreased breath sounds at bases HEART: S1 S2 regular rate and rhythm , ABDOMEN: Soft , no tenderness, left perirectal area induration has slightly decreased and not as tender, no fluctuation noticed EXTREMITIES: No edema feet - Labs CBC & Chem 7: 12/25/22 07:39 12/26/22 07:11 Labs: Abnormal Lab Results - Last 24 Hours (Table) 12/24/22 12/25/22 12/25/22 Range/Units 07:29 07:22 07:39 WBC 11.3 H (3.8-10.6) k/uL RBC 4.23 L (4.30-5.90) m/uL RDW 11.3 L (11.5-15.5) % Immature Gran # 0.07 H (0.00-0.04) X 10*3/uL Neutrophils # 12.19 H 8.0 H (1.80-7.70) X 10*3/uL Monocytes # 1.97 H (0.20-1.00) X 10*3/uL BUN 8 L (9-20) mg/dL Albumin 3.3 L (3.5-5.0) g/dL Microbiology - Last 24 Hours (Table) 12/21/22 18:41 Blood Culture - Preliminary Blood No Growth after 72 hours 12/21/22 18:18 Blood Culture - Preliminary Blood No Growth after 72 hours Assessment and Plan (1) Perirectal abscess Current Visit: Yes Status: Acute Code(s): K61.1 - RECTAL ABSCESS SNOMED Code(s): 55430059 Plan: 1patient was in the hospital with sepsis in this we did have a fever elevated white count source of left perirectal abscess will need to cover for both gram- positive skin yaima as well as gram-negative pathogen in view of the location of this abscess CT did not show any intra-abdominal abscess, patient did have a repeat CT on 12/23/2022 did not show any organizing abscess formation 2-patient seemed to have shown some clinical improvement as the patient is afebrile, the patient white count is trending down, Gen. surgery has ordered soft tissue ultrasound and if any fluid collection plan is for drainage should be sent for cultures continue with the vancomycin and Unasyn family at the bedside questions were answered Time with Patient: Less than 30
[2022-12-26 12:08] LABS: Basophils % (A) 0 %; Eosinophils # (A) 0.2 k/uL (0-0.7); Eosinophils % (A) 3 %; HCT 37.4 % (39.0-53.0); HGB 12.6 gm/dL (13.0-17.5); Lymphocytes # (A) 1.6 k/uL (1.0-4.8); Lymphocytes % (A) 24 %; MCH 31.4 pg (25.0-35.0); MCHC 33.6 g/dL (31.0-37.0); MCV 93.5 fL (80.0-100.0); Mean Platelet Volume 8.5; Monocytes # (A) 0.6 k/uL (0-1.0); Monocytes % (A) 9 %; Neutrophils % (A) 61 %; Platelet Count 296 k/uL (150-450); RDW 11.8 % (11.5-15.5); WBC 6.5 k/uL (3.8-10.6)
--- NOTE | 2022-12-26 16:43 | P.PN ---
Subjective Progress Note Date: 12/26/22 Principal diagnosis: Left perirectal abscess Patient is a 37-year-old male presenting to the hospital with left perirectal pain and discomfort patient has been diagnosed with a left perirectal cellulitis and phlegmon but CT 2 failed to reveal any evidence of abscess. On today's evaluation and that is 12/26/2022, the patient remains to be afebrile, the patient pain to the left perirectal area has decreased in intensity since complaining of swelling and pain when he sits on it, there patient denies having any nausea no vomiting , the patient denies chest pain or shortness of breath or cough no diarrhea Objective - Vital Signs Vital signs: Vital Signs Temp 97.6 F 12/26/22 07:25 Pulse 62 12/26/22 07:25 Resp 16 12/26/22 07:25 BP 107/66 12/26/22 07:25 Pulse Ox 97 12/26/22 07:25 FiO2 Intake & Output 12/25/22 12/26/22 12/26/22 18:59 06:59 18:59 Other: # Voids 4 3 - Exam GENERAL DESCRIPTION: Middle-age male lying in bed in no distress RESPIRATORY SYSTEM: Unlabored breathing , decreased breath sounds at bases HEART: S1 S2 regular rate and rhythm , ABDOMEN: Soft , no tenderness, left perirectal area induration has slightly decreased and not as tender, no fluctuation noticed EXTREMITIES: No edema feet - Labs CBC & Chem 7: 12/26/22 07:11 12/26/22 07:11 Labs: Abnormal Lab Results - Last 24 Hours (Table) 12/26/22 Range/Units 07:11 RBC 4.00 L (4.30-5.90) m/uL Hgb 12.6 L (13.0-17.5) gm/dL Hct 37.4 L (39.0-53.0) % Microbiology - Last 24 Hours (Table) 12/21/22 18:41 Blood Culture - Preliminary Blood No Growth after 96 hours 12/21/22 18:18 Blood Culture - Preliminary Blood No Growth after 96 hours Assessment and Plan (1) Perirectal abscess Current Visit: Yes Status: Acute Code(s): K61.1 - RECTAL ABSCESS SNOMED Code(s): 64437288 Plan: 1patient was in the hospital with sepsis in this we did have a fever elevated white count source of left perirectal abscess will need to cover for both gram-positive skin yaima as well as gram-negative pathogen in view of the location of this abscess CT did not show any intra-abdominal abscess, patient did have a repeat CT on 12/23/2022 did not show any organizing abscess formation 2-patient seemed to have shown some clinical improvement as the patient is af ebrile, the patient white count has normalized, Gen. surgery has ordered soft tissue ultrasound we did shows evidence of fluid collection possible abscess await drainage and culture continue with Unasyn and vancomycin Time with Patient: Less than 30
[2022-12-26] MEDS: VANCOMYCIN 1,750 MG in SODIUM CHLORIDE 0.9% 500 ML 500 ML IVPB SCH (17:45)
[2022-12-26] MEDS: SENNOSIDES-DOCUSATE SODIUM 1 EACH TAB PO SCH (20:51)
--- NOTE | 2022-12-26 20:56 | P.PN ---
Subjective Progress Note Date: 12/26/22 CHIEF COMPLAINT: Right buttock pain HISTORY OF PRESENT ILLNESS: The patient is a 37-year-old male who presents with left buttock/perineal mass. He has responded to antibiotics. No fevers or chills. WBC normal. His mother and family is at bedside. Patient has multiple questions seeking course of treatment for accelerated healing. ROS: No reports of nausea and vomiting. No fevers or chills. No new chest pain. No productive sputum PHYSICAL EXAM: VITAL SIGNS: Reviewed CONSTITUTIONAL: Well developed and in no acute distress. EYES: Conjuctivae without sclera icterus. Extraocular movements grossly intact. HEAD, EARS, NOSE, THROAT: Moist buccal mucosa. Head is atraumatic, normocephalic. Hears conversational speech. No nasal drainage. RESPIRATORY: Non-labored respirations and equal bilateral excursions. CARDIOVASCULAR: Palpable 2+ radial pulses. ABDOMEN: No peritonitis. BUTTOCK: Left perineum swelling 6 x 4 cm without involvement of the scrotum. MUSCULOSKELETAL: No gross deformity of the lower extremities noted. No clubbing. No cyanosis. SKIN: Good skin turgor. Well perfused. NEUROLOGIC: Cranial nerves II through XII grossly intact. No focal or lateralizing signs. PSYCH: Appropriate affect. Alert and oriented to person, place and time. CLINICAL LABS: Reviewed. WBC now normal at 6600. ASSESSMENT: 1. Left perirectal pain with cellulitis 2. Left buttock cellulitis/swelling PLAN: 1. Options include an ultrasound-guided drainage of buttock abscess versus marina gical intervention and conservative management reviewed. His goal seeking accelerated healing. 2. Per request of infectious disease, cultures are requested. Options including ultrasound drainage described. 3. Continue IV antibiotics. 4. Continue sitz baths. 5. Surgical intervention risk of packing, cosmetic deformity was reviewed. 6. Patient seeking additional care prior to discharge. Objective - Vital Signs Vital signs: Vital Signs Temp 97.8 F 12/26/22 20:00 Pulse 56 L 12/26/22 20:00 Resp 18 12/26/22 20:00 BP 126/81 12/26/22 20:00 Pulse Ox 100 12/26/22 20:00 FiO2 Intake & Output 12/26/22 12/26/22 12/27/22 06:59 18:59 06:59 Other: # Voids 3 3 - Labs CBC & Chem 7: 12/26/22 07:11 12/26/22 07:11 Labs: Abnormal Lab Results - Last 24 Hours (Table) 12/26/22 Range/Units 07:11 RBC 4.00 L (4.30-5.90) m/uL Hgb 12.6 L (13.0-17.5) gm/dL Hct 37.4 L (39.0-53.0) % Microbiology - Last 24 Hours (Table) 12/21/22 18:41 Blood Culture - Preliminary Blood No Growth after 120 hours 12/21/22 18:18 Blood Culture - Preliminary Blood No Growth after 120 hours
[2022-12-27] MEDS: VANCOMYCIN 1,750 MG in SODIUM CHLORIDE 0.9% 500 ML 500 ML IVPB SCH ×3 (00:01→17:00)
[2022-12-27] MEDS: KETOROLAC 15 MG/ML 1 ML VIAL IVP SCH ×4 (01:01→18:42)
[2022-12-27] MEDS: AMPICILLIN-SULBACTAM 3 GM in SODIUM CHLORIDE 0.9% 100 ML IVPB SCH ×4 (01:02→20:11)
--- NOTE | 2022-12-27 01:21 | P.PN ---
Subjective Progress Note Date: 12/25/22 Patient is a 37-year-old male with no significant past medical history presents ER with complaints of rectal pain for the past 5 days. Patient has been having increasing pain mainly in the left perirectal area. Denies any purulent discharge or bleeding noted. Patient did have low-grade fever 100.2 and was tachycardic. Denies any abdominal pain. No nausea vomiting or diarrhea. Denies any recent illnesses. No chest pain or shortness of breath. Denies any history of IVDU. No prior history of hepatitis or HIV. CT of the abdomen pelvis showed phlegmonous mass within the left perirectal region without definitive organizing fluid collection. Evaluation is limited without contrast. No acute intra-abdominal process. Laboratory showed WBC 20.0 hemoglobin 14.1 platelets 240 Sodium 137 potassium 3.9 chloride 99 bicarb is 26 BUN 16 and creatinine 1.14 and calcium 9.2 blood sugar is 102 12/24/2022 Patient is currently lying in the bed. Awake alert and oriented x3. Rectal pain is improving. Able to pass flatus and no bowel movement last few days. Patient has been afebrile. Leukocytosis is improving slowly. Denied any nausea or vomiting or abdominal pain or diarrhea. No chest pain or shortness of breath. Laboratory test showed WBC 16.1 hemoglobin 12.7 and platelets 250 ID and general surgery is on board. Currently on IV antibiotics with Unasyn and vanco. 12/25/2022 Patient is currently lying in bed. Awake alert oriented x3.. Rectal pain is improving. Patient able to pass flatus. Afebrile. No nausea vomiting abdominal diarrhea. Was able to tolerate oral diet today. No cough or sputum production. Patient is being continued on antibiotics. Laboratory data showed WBC improved to 11.3 hemoglobin 13.3 and platelets 283 currently on Unasyn and vanco. ID is on board. Current medications reviewed. Objective - Vital Signs Vital signs: Vital Signs Temp 98.1 F 12/25/22 20:00 Pulse 69 12/25/22 20:00 Resp 20 12/25/22 20:00 BP 130/82 12/25/22 20:00 Pulse Ox 96 12/25/22 20:00 FiO2 Intake & Output 12/25/22 12/25/22 12/26/22 06:59 18:59 06:59 Other: # Voids 3 4 - Exam PHYSICAL EXAMINATION: Patient is lying in the bed comfortably, no acute distress, awake alert and oriented.. HEENT: Normocephalic. Neck is supple. Pupils reactive. Nostrils clear. Oral cavity is moist. Neck reveals no JVD, carotid bruits, or thyromegaly. CHEST EXAMINATION: Trachea is central. Symmetrical expansion. Lung sanchez clear to auscultation and percussion. CARDIAC: Normal S1, S2 with no gallops. No murmurs ABDOMEN: Soft. Bowel sounds present. Nontender. No organomegaly. No abdominal bruits. Extremities: reveal no edema. No clubbing or cyanosis Neurologically awake, alert, oriented x3 with well-coordinated movements. No focal deficits noted Skin: No rash or skin lesions. Psychiatric: Coperative. Nonsuicidal, Musculoskeletal: No joint swelling or deformity. Normal range of motion. - Labs CBC & Chem 7: 12/26/22 07:11 12/26/22 07:11 Labs: Abnormal Lab Results - Last 24 Hours (Table) 12/25/22 12/25/22 Range/Units 07:22 07:39 WBC 11.3 H (3.8-10.6) k/uL RBC 4.23 L (4.30-5.90) m/uL RDW 11.3 L (11.5-15.5) % Neutrophils # 8.0 H (1.3-7.7) k/uL BUN 8 L (9-20) mg/dL Albumin 3.3 L (3.5-5.0) g/dL Microbiology - Last 24 Hours (Table) 12/21/22 18:41 Blood Culture - Preliminary Blood No Growth after 72 hours 12/21/22 18:18 Blood Culture - Preliminary Blood No Growth after 72 hours Assessment and Plan Assessment: Rectal pain with CT finding of phlegmonous mass within the left periatrial region. No definitive abscess noted. Sepsis secondary to above. DVT prophylaxis with heparin subcu Plan: Patient will be continued on antibiotics , unasyn and vancomycin. Continue with pain management. GI and DVT prophylaxis. Follow-up culture report and follow- up closely. ID is on board.
--- NOTE | 2022-12-27 01:24 | P.PN ---
Subjective Progress Note Date: 12/26/22 Patient is a 37-year-old male with no significant past medical history presents ER with complaints of rectal pain for the past 5 days. Patient has been having increasing pain mainly in the left perirectal area. Denies any purulent discharge or bleeding noted. Patient did have low-grade fever 100.2 and was tachycardic. Denies any abdominal pain. No nausea vomiting or diarrhea. Denies any recent illnesses. No chest pain or shortness of breath. Denies any history of IVDU. No prior history of hepatitis or HIV. CT of the abdomen pelvis showed phlegmonous mass within the left perirectal region without definitive organizing fluid collection. Evaluation is limited without contrast. No acute intra-abdominal process. Laboratory showed WBC 20.0 hemoglobin 14.1 platelets 240 Sodium 137 potassium 3.9 chloride 99 bicarb is 26 BUN 16 and creatinine 1.14 and calcium 9.2 blood sugar is 102 12/24/2022 Patient is currently lying in the bed. Awake alert and oriented x3. Rectal pain is improving. Able to pass flatus and no bowel movement last few days. Patient has been afebrile. Leukocytosis is improving slowly. Denied any nausea or vomiting or abdominal pain or diarrhea. No chest pain or shortness of breath. Laboratory test showed WBC 16.1 hemoglobin 12.7 and platelets 250 ID and general surgery is on board. Currently on IV antibiotics with Unasyn and vanco. 12/25/2022 Patient is currently lying in bed. Awake alert oriented x3.. Rectal pain is improving. Patient able to pass flatus. Afebrile. No nausea vomiting abdominal diarrhea. Was able to tolerate oral diet today. No cough or sputum production. Patient is being continued on antibiotics. Laboratory data showed WBC improved to 11.3 hemoglobin 13.3 and platelets 283 currently on Unasyn and vanco. ID is on board. 12/26/2022 Patient is currently resting in bed. Awake alert and oriented times x3 no fever no chills. Currently pain is much improved. Patient did not have any involvement last few days. Able to pass flatus. Tolerating oral diet. General surgery and ID is on board. Laboratory reviewed. Current medications reviewed. Objective - Vital Signs Vital signs: Vital Signs Temp 97.6 F 12/26/22 07:25 Pulse 62 12/26/22 07:25 Resp 16 12/26/22 07:25 BP 107/66 12/26/22 07:25 Pulse Ox 97 12/26/22 07:25 FiO2 Intake & Output 12/25/22 12/26/22 12/26/22 18:59 06:59 18:59 Other: # Voids 4 3 - Exam PHYSICAL EXAMINATION: Patient is lying in the bed comfortably, no acute distress, awake alert and oriented.. HEENT: Normocephalic. Neck is supple. Pupils reactive. Nostrils clear. Oral cavity is moist. Neck reveals no JVD, carotid bruits, or thyromegaly. CHEST EXAMINATION: Trachea is central. Symmetrical expansion. Lung sanchez clear to auscultation and percussion. CARDIAC: Normal S1, S2 with no gallops. No murmurs ABDOMEN: Soft. Bowel sounds present. Nontender. No organomegaly. No abdominal bruits. Extremities: reveal no edema. No clubbing or cyanosis Neurologically awake, alert, oriented x3 with well-coordinated movements. No focal deficits noted Skin: No rash or skin lesions. Psychiatric: Coperative. Nonsuicidal, Musculoskeletal: No joint swelling or deformity. Normal range of motion. - Labs CBC & Chem 7: 12/26/22 07:11 12/26/22 07:11 Labs: Abnormal Lab Results - Last 24 Hours (Table) 12/26/22 Range/Units 07:11 RBC 4.00 L (4.30-5.90) m/uL Hgb 12.6 L (13.0-17.5) gm/dL Hct 37.4 L (39.0-53.0) % Microbiology - Last 24 Hours (Table) 12/21/22 18:41 Blood Culture - Preliminary Blood No Growth after 96 hours 12/21/22 18:18 Blood Culture - Preliminary Blood No Growth after 96 hours Assessment and Plan Assessment: Rectal pain with CT finding of phlegmonous mass within the left periatrial region. No definitive abscess noted. Sepsis secondary to above. DVT prophylaxis with heparin subcu Plan: Patient will be continued on antibiotics , unasyn and vancomycin. General surgery is on board. Ultrasound guided drainage of the buttock abscess versus surgical intervention versus conservative management. Continue with pain management. GI and DVT prophylaxis. Follow-up culture report and follow-up closely. ID is on board.
[2022-12-27] MEDS: HYDROcodone/APAP 5-325MG 1 EACH TAB PO PRN ×3 (02:23→21:51)
[2022-12-27] MEDS: HYDROmorphone 1 MG/ML 1 ML SYRINGE IVP PRN ×6 (06:05→22:37)
[2022-12-27] MEDS: PANTOPRAZOLE 40 MG TABLET PO SCH (06:06)
[2022-12-27] MEDS: HEPARIN SODIUM,PORCINE/PF 5,000 UNIT/0.5 ML SYRINGE SQ SCH ×2 (07:06→20:06)
[2022-12-27] MEDS: LIDOCAINE 2% GLYDO JELLY 6 ML APPL MISCELLANE SCH ×2 (07:07→20:15)
[2022-12-27 07:33] LABS: African American GFR (CKD) >90 (>60 ml/min/1.73 sqM); Anion Gap 7 mmol/L; Blood Urea Nitrogen 8 mg/dL (9-20); Calcium 8.8 mg/dL (8.4-10.2); Carbon Dioxide 28 mmol/L (22-30); Chloride 104 mmol/L (98-107); Glucose 77 mg/dL (74-99); Non-African American GFR(CKD) >90 (>60 ml/min/1.73 sqM); Potassium 3.7 mmol/L (3.5-5.1); Sodium 139 mmol/L (137-145)
[2022-12-27] MEDS: SODIUM CHLORIDE 0.9% 1,000 ML IV SCH ×2 (07:38→20:15)
--- NOTE | 2022-12-27 08:19 | P.PN ---
Subjective Progress Note Date: 12/27/22 CHIEF COMPLAINT: Right buttock pain HISTORY OF PRESENT ILLNESS: The patient is a 37-year-old male who presents with left buttock/perineal mass. He has responded to antibiotics. He reports palpable mass with difficulty with sitting. Infectious disease requesting cultures. He reports mass is extending toward the scrotum. ROS: No reports of nausea and vomiting. No fevers or chills. No new chest pa in. No productive sputum PHYSICAL EXAM: VITAL SIGNS: Reviewed CONSTITUTIONAL: Well developed and in no acute distress. EYES: Conjuctivae without sclera icterus. Extraocular movements grossly intact. HEAD, EARS, NOSE, THROAT: Moist buccal mucosa. Head is atraumatic, normocephalic. Hears conversational speech. No nasal drainage. RESPIRATORY: Non-labored respirations and equal bilateral excursions. CARDIOVASCULAR: Palpable 2+ radial pulses. ABDOMEN: No peritonitis. BUTTOCK: Left perineum swelling 6 x 4 cm without involvement of the scrotum. MUSCULOSKELETAL: No gross deformity of the lower extremities noted. No clubbing. No cyanosis. SKIN: Good skin turgor. Well perfused. NEUROLOGIC: Cranial nerves II through XII grossly intact. No focal or lateralizing signs. PSYCH: Appropriate affect. Alert and oriented to person, place and time. CLINICAL LABS: Reviewed. WBC 6600. ASSESSMENT: 1. Left perirectal pain with cellulitis 2. Left buttock cellulitis/swelling PLAN: 1. Surgical intervention offered drainage of fluid collection and cultures. 2. Otherwise continue with IV antibiotics for possible oral antibiotics upon discharge. Objective - Vital Signs Vital signs: Vital Signs Temp 98.0 F 12/27/22 07:22 Pulse 66 12/27/22 07:22 Resp 17 12/27/22 07:22 BP 124/76 12/27/22 07:22 Pulse Ox 100 12/27/22 07:22 FiO2 Intake & Output 12/26/22 12/27/22 12/27/22 18:59 06:59 18:59 Other: # Voids 3 3 - Labs CBC & Chem 7: 12/26/22 07:11 12/27/22 06:13 Labs: Abnormal Lab Results - Last 24 Hours (Table) 12/26/22 12/27/22 Range/Units 07:11 06:13 RBC 4.00 L (4.30-5.90) m/uL Hgb 12.6 L (13.0-17.5) gm/dL Hct 37.4 L (39.0-53.0) % BUN 8 L (9-20) mg/dL Microbiology - Last 24 Hours (Table) 12/21/22 18:41 Blood Culture - Preliminary Blood No Growth after 120 hours 12/21/22 18:18 Blood Culture - Preliminary Blood No Growth after 120 hours
[2022-12-27 11:51] LABS: Basophils # (A) 0.04 X 10*3/uL (0.00-0.10); Basophils % (A) 0.6 %; Eosinophils # (A) 0.19 X 10*3/uL (0.04-0.35); Eosinophils % (A) 2.7 %; HCT 36.8 % (39.6-50.0); HGB 12.4 g/dL (13.0-17.0); Immature Grans, Automated 0.6 %; Lymphocytes # (A) 2.19 X 10*3/uL (0.90-5.00); Lymphocytes % (A) 31.5 %; MCH 31.4 pg (27.0-32.0); MCHC 33.7 g/dL (32.0-37.0); MCV 93.2 fL (80.0-97.0); Mean Platelet Volume 10.2 fL (9.5-12.2); Monocytes % (A) 11.5 %; NRBC Per 100 WBC 0 /100 WBCS (0.0-0.0); Neutrophils % (A) 53.1 %; Platelet Count 326 X 10*3/uL (140-440); RBC 3.95 X 10*6/uL (4.40-5.60); RDW 11.5 % (11.5-14.5); WBC 6.96 X 10*3/uL (4.50-10.00)
[2022-12-27] MEDS ORDERED: IV FLUID CONTINUATION 1,000 ML IV ONE (12:11)
[2022-12-27] MEDS ORDERED: DEXAMETHASONE SOD PHOSPHATE 4 MG/ML 1 ML VIAL IVP ONE (12:51)
[2022-12-27] MEDS ORDERED: ONDANSETRON 4 MG/2 ML VIAL IVP ONE (12:51)
[2022-12-27] MEDS ORDERED: PROPOFOL 10 MG/ML 20 ML VIAL IV ONE (13:26)
[2022-12-27] MEDS ORDERED: fentaNYL (PF) 50 MCG/ML 2 ML AMP ONE (13:26)
[2022-12-27] MEDS ORDERED: LIDOCAINE 2% INJ 20 MG/ML (2 ML VIAL) ONE (13:26)
[2022-12-27] MEDS ORDERED: SUCCINYLCHOLINE CHLORIDE 200 MG/10 ML VIAL IV ONE (13:26)
[2022-12-27] MEDS ORDERED: KETOROLAC 15 MG/ML 1 ML VIAL ONE (13:26)
[2022-12-27] MEDS ORDERED: MIDAZOLAM 2 MG/2 ML VIAL ONE (13:26)
[2022-12-27] MEDS ORDERED: BUPIVACAIN-EPI 0.25%-1:200,000 30 ML VIAL SQ ONE (13:59)
[2022-12-27] MEDS ORDERED: HYDROmorphone 0.5 MG/0.5 ML SYRINGE IVP ONE ×2 (14:36→14:49)
--- NOTE | 2022-12-27 16:49 | P.PN ---
Subjective Progress Note Date: 12/27/22 Patient is a 37-year-old male with no significant past medical history presents ER with complaints of rectal pain for the past 5 days. Patient has been having increasing pain mainly in the left perirectal area. Denies any purulent discharge or bleeding noted. Patient did have low-grade fever 100.2 and was tachycardic. Denies any abdominal pain. No nausea vomiting or diarrhea. Denies any recent illnesses. No chest pain or shortness of breath. Denies any history of IVDU. No prior history of hepatitis or HIV. CT of the abdomen pelvis showed phlegmonous mass within the left perirectal region without definitive organizing fluid collection. Evaluation is limited without contrast. No acute intra-abdominal process. Laboratory showed WBC 20.0 hemoglobin 14.1 platelets 240 Sodium 137 potassium 3.9 chloride 99 bicarb is 26 BUN 16 and creatinine 1.14 and calcium 9.2 blood sugar is 102 12/24/2022 Patient is currently lying in the bed. Awake alert and oriented x3. Rectal pain is improving. Able to pass flatus and no bowel movement last few days. Patient has been afebrile. Leukocytosis is improving slowly. Denied any nausea or vomiting or abdominal pain or diarrhea. No chest pain or shortness of breath. Laboratory test showed WBC 16.1 hemoglobin 12.7 and platelets 250 ID and general surgery is on board. Currently on IV antibiotics with Unasyn and vanco. 12/25/2022 Patient is currently lying in bed. Awake alert oriented x3.. Rectal pain is improving. Patient able to pass flatus. Afebrile. No nausea vomiting abdominal diarrhea. Was able to tolerate oral diet today. No cough or sputum production. Patient is being continued on antibiotics. Laboratory data showed WBC improved to 11.3 hemoglobin 13.3 and platelets 283 currently on Unasyn and vanco. ID is on board. 12/26/2022 Patient is currently resting in bed. Awake alert and oriented times x3 no fever no chills. Currently pain is much improved. Patient did not have any involvement last few days. Able to pass flatus. Tolerating oral diet. General surgery and ID is on board. Laboratory reviewed. 12/27/2022 Patient is evaluated today resting in bed continues to report pain and discomfo rt to the gluteal abscess. Patient reports pain is controlled with dilaudid and norco. Scheduled to undergo I & D of the abscess today with general surgery. Patient remains on IV vancomycin and IV unasyn. ID is following the cultures and patient will remain until surgical cultures are final. White count has normalized. Kidney function is stable. Patient is afebrile, heart rate 66, blood pressure 124/76, 100% room air. Review of Systems Constitutional: Denied any fatigue denied any fever. Cardio vascular: denied any chest pain, palpitations Gastrointestinal: denied any nausea, vomiting, diarrhea Pulmonary: Denied any shortness of breath cough Neurologic denied any new focal deficits All inpatient medications were reviewed and appropriate changes in these medications as dictated in the interval history and assessment and plan. PHYSICAL EXAMINATION: GENERAL: The patient is alert and oriented x3, not in any acute distress. Well developed, well nourished. HEENT: Pupils are round and equally reacting to light. EOMI. No scleral icterus. No conjunctival pallor. Normocephalic, atraumatic. No pharyngeal erythema. No thyromegaly. CARDIOVASCULAR: S1 and S2 present. No murmurs, rubs, or gallops. PULMONARY: Chest is clear to auscultation, no wheezing or crackles. ABDOMEN: Soft, nontender, nondistended, normoactive bowel sounds. No palpable organomegaly. MUSCULOSKELETAL: No joint swelling or deformity. EXTREMITIES: No cyanosis, clubbing, or pedal edema. NEUROLOGICAL: Gross neurological examination did not reveal any focal deficits. SKIN: No rashes. Assessment of abscess deferred to surgery. Assessment and Plan Assessment Rectal pain with CT finding of phlegmonous mass within the left perirectal region. Patient had f/u ultrasound showing complex fluid collection compatible with abscess Sepsis secondary to above. Leukocytosis resolved DVT prophylaxis with heparin subcu GI prophylaxis Full Code Plan Scheduled to undergo I&D of left gluteal abscess today 12/27 Continue on IV antibiotics per ID Pending deep tissue cultures for final discharge antibiotics Local woundcare The impression and plan of care has been dictated by Nurse Mafnred Rivas as directed. Dr. Floresita MD I have performed a history and physical examination and medical decision making of this patient, discussed the same with the dictator, and agree with the dict ators assessment and plan as written, documented as a scribe. Based on total visit time, I have performed more than 50% of this visit. Objective - Vital Signs Vital signs: Vital Signs Temp 97.8 F 12/27/22 14:25 Pulse 66 12/27/22 15:10 Resp 16 12/27/22 15:10 BP 117/74 12/27/22 15:10 Pulse Ox 95 12/27/22 15:10 FiO2 Intake & Output 12/26/22 12/27/22 12/27/22 18:59 06:59 18:59 Intake Total 900 Output Total 5 Balance 895 Intake: IV 900 Output: Estimated Blood Loss 5 Other: Voiding Method Toilet # Voids 3 3 3 - Labs CBC & Chem 7: 12/27/22 06:13 12/27/22 06:13 Labs: Abnormal Lab Results - Last 24 Hours (Table) 12/27/22 12/27/22 Range/Units 06:13 06:13 RBC 3.95 L (4.40-5.60) X 10*6/uL Hgb 12.4 L (13.0-17.0) g/dL Hct 36.8 L (39.6-50.0) % BUN 8 L (9-20) mg/dL Microbiology - Last 24 Hours (Table) 12/21/22 18:41 Blood Culture - Preliminary Blood No Growth after 120 hours 12/21/22 18:18 Blood Culture - Preliminary Blood No Growth after 120 hours Assessment and Plan Time with Patient: Less than 30
[2022-12-27] MEDS: SENNOSIDES-DOCUSATE SODIUM 1 EACH TAB PO SCH (20:12)
--- NOTE | 2022-12-27 21:39 | P.PN ---
Subjective Progress Note Date: 12/27/22 Principal diagnosis: Left perirectal abscess Patient is a 37-year-old male presenting to the hospital with left perirectal pain and discomfort patient has been diagnosed with a left perirectal cellulitis and phlegmon but CT 2 failed to reveal any evidence of abscess. On today's evaluation and that is 12/27/2022, the patient continues to be afebrile, the patient pain to the left perirectal area has decreased in intensity , there patient denies having any nausea no vomiting , the patient denies chest pain or shortness of breath or cough no diarrhea, patient scheduled for surgical drainage this afternoon Objective - Vital Signs Vital signs: Vital Signs Temp 97.1 F L 12/27/22 12:17 Pulse 58 L 12/27/22 12:17 Resp 15 12/27/22 12:17 BP 136/84 12/27/22 12:17 Pulse Ox 97 12/27/22 12:17 FiO2 Intake & Output 12/26/22 12/27/22 12/27/22 18:59 06:59 18:59 Intake Total 400 Balance 400 Intake: IV 400 Other: Voiding Method Toilet # Voids 3 3 3 - Exam GENERAL DESCRIPTION: Middle-age male lying in bed in no distress RESPIRATORY SYSTEM: Unlabored breathing , decreased breath sounds at bases HEART: S1 S2 regular rate and rhythm , ABDOMEN: Soft , no tenderness, left perirectal area induration has slightly decreased and not as tender, no fluctuation noticed EXTREMITIES: No edema feet - Labs CBC & Chem 7: 12/27/22 06:13 12/27/22 06:13 Labs: Abnormal Lab Results - Last 24 Hours (Table) 12/27/22 12/27/22 Range/Units 06:13 06:13 RBC 3.95 L (4.40-5.60) X 10*6/uL Hgb 12.4 L (13.0-17.0) g/dL Hct 36.8 L (39.6-50.0) % BUN 8 L (9-20) mg/dL Microbiology - Last 24 Hours (Table) 12/21/22 18:41 Blood Culture - Preliminary Blood No Growth after 120 hours 12/21/22 18:18 Blood Culture - Preliminary Blood No Growth after 120 hours Assessment and Plan (1) Perirectal abscess Current Visit: Yes Status: Acute Code(s): K61.1 - RECTAL ABSCESS SNOMED Code(s): 86163842 Plan: 1patient was in the hospital with sepsis in this we did have a fever elevated white count source of left perirectal abscess will need to cover for both gram- positive skin yaima as well as gram-negative pathogen in view of the location of this abscess CT did not show any intra-abdominal abscess, patient did have a r epeat CT on 12/23/2022 did not show any organizing abscess formation 2-patient did have soft tissue ultrasound which did shows evidence of fluid collection possible abscess , patient scheduled for surgical drainage and deep culture continue with vancomycin and Unasyn the discharge antibiotic on the basis of final culture discussed with the patient and the family Time with Patient: Less than 30
--- NOTE | 2022-12-27 23:34 | P.OP ---
Date of Procedure: 12/27/22 Description of Procedure: SURGEON: SUSAN LARKIN MD PREPARER MAKING DEPARTMENT: None. PREOPERATIVE DIAGNOSES: 1. Complicated left buttock/perianal cellulitis with abscess 2. Sepsis on admission POSTOPERATIVE DIAGNOSES: 1. Complicated left buttock/perianal cellulitis with abscess 2. Sepsis on admission PROCEDURES PERFORMED: 1. Incision and drainage of complicated left perineum/buttock cellulitis with abscess 2. Water jet lavage for mechanical debridement, 1 L, 2 cm wound Anesthesia: GETA, local Estimated Blood Loss (ml): 5 Pathology: Anaerobic and aerobic left perianal cellulitis with abscess Condition: stable Disposition: PACU COMPLICATIONS: None. Operative Findings: 1. Left hernia phlegmon with moderate soft tissue edema INDICATIONS: The patient is a 37-year-old male who presents with sepsis on admission and left buttock/perianal abscess. Despite conservative treatment, he complains of persistent infection. Surgical intervention was reviewed including cultures for antibiotic management. Benefits and risks of surgical intervention were described including bleeding, infection, seroma, pain, wound dehiscence and recurrence. Informed consent was obtained. DESCRIPTION OR PROCEDURE: Patient was brought into the operating room. After general induction, he was positioned in prone position. The buttocks were prepped and draped in a standard sterile fashion with Betadine. Timeout protocol was confirmed with the surgical team regarding the patient's name, procedure to be performed including preoperative medications. DVT prophylaxis was confirmed. A field block was placed of the at the left buttock. A transverse 2 cm incision along the skin tension line was made using #15 blade. Loculations were disrupted using hemostats and limited digital dissection anteriorly of the perineum. Anaerobic and aerobic cultures were obtained. Hydrogen peroxide followed by 1 L normal saline Pulsavac for mechanical debridement was performed. Hemostasis was checked. The skin was cleansed with dilute hydrogen peroxide and the wound was covered with Kerlix roll and ABD with mesh underwear. At the end of the procedure, needle, sponge, and instrument count was verified correct by electrophysiology technician. The patient was transferred into the postanesthesia care unit in stable condit ion. Wound care instructions were described to the patient's family including anticipated recovery for least 1 week
[2022-12-28] MEDS: KETOROLAC 15 MG/ML 1 ML VIAL IVP SCH ×4 (00:04→17:44)
[2022-12-28] MEDS: VANCOMYCIN 1,750 MG in SODIUM CHLORIDE 0.9% 500 ML 500 ML IVPB SCH ×3 (00:05→16:12)
[2022-12-28] MEDS: AMPICILLIN-SULBACTAM 3 GM in SODIUM CHLORIDE 0.9% 100 ML IVPB SCH ×4 (02:04→21:15)
[2022-12-28] MEDS: HYDROmorphone 1 MG/ML 1 ML SYRINGE IVP PRN ×3 (02:04→14:11)
[2022-12-28 06:48] LABS: Basophils % (A) 0 %; Eosinophils # (A) 0.1 k/uL (0-0.7); Eosinophils % (A) 0 %; HCT 40.1 % (39.0-53.0); HGB 13.5 gm/dL (13.0-17.5); Lymphocytes # (A) 1.9 k/uL (1.0-4.8); Lymphocytes % (A) 18 %; MCH 31.4 pg (25.0-35.0); MCHC 33.6 g/dL (31.0-37.0); MCV 93.4 fL (80.0-100.0); Mean Platelet Volume 7.7; Monocytes # (A) 0.6 k/uL (0-1.0); Monocytes % (A) 5 %; Neutrophils % (A) 74 %; Platelet Count 357 k/uL (150-450); RBC 4.29 m/uL (4.30-5.90); RDW 11.5 % (11.5-15.5); WBC 10.8 k/uL (3.8-10.6)
[2022-12-28] MEDS: LIDOCAINE 2% GLYDO JELLY 6 ML APPL MISCELLANE SCH ×2 (07:25→21:15)
[2022-12-28] MEDS: HEPARIN SODIUM,PORCINE/PF 5,000 UNIT/0.5 ML SYRINGE SQ SCH ×2 (07:25→21:15)
[2022-12-28] MEDS: PANTOPRAZOLE 40 MG TABLET PO SCH (07:28)
[2022-12-28] MEDS: HYDROcodone/APAP 5-325MG 1 EACH TAB PO PRN ×2 (08:09→16:20)
[2022-12-28] MEDS: SODIUM CHLORIDE 0.9% 1,000 ML IV SCH ×2 (08:54→21:15)
[2022-12-28 12:09] VITALS: BMI 29.4
--- NOTE | 2022-12-28 15:37 | P.PN ---
Subjective Progress Note Date: 12/28/22 Patient is a 37-year-old male with no significant past medical history presents ER with complaints of rectal pain for the past 5 days. Patient has been having increasing pain mainly in the left perirectal area. Denies any purulent discharge or bleeding noted. Patient did have low-grade fever 100.2 and was tachycardic. Denies any abdominal pain. No nausea vomiting or diarrhea. Denies any recent illnesses. No chest pain or shortness of breath. Denies any history of IVDU. No prior history of hepatitis or HIV. CT of the abdomen pelvis showed phlegmonous mass within the left perirectal region without definitive organizing fluid collection. Evaluation is limited without contrast. No acute intra-abdominal process. Laboratory showed WBC 20.0 hemoglobin 14.1 platelets 240 Sodium 137 potassium 3.9 chloride 99 bicarb is 26 BUN 16 and creatinine 1.14 and calcium 9.2 blood sugar is 102 12/24/2022 Patient is currently lying in the bed. Awake alert and oriented x3. Rectal pain is improving. Able to pass flatus and no bowel movement last few days. Patient has been afebrile. Leukocytosis is improving slowly. Denied any nausea or vomiting or abdominal pain or diarrhea. No chest pain or shortness of breath. Laboratory test showed WBC 16.1 hemoglobin 12.7 and platelets 250 ID and general surgery is on board. Currently on IV antibiotics with Unasyn and vanco. 12/25/2022 Patient is currently lying in bed. Awake alert oriented x3.. Rectal pain is improving. Patient able to pass flatus. Afebrile. No nausea vomiting abdominal diarrhea. Was able to tolerate oral diet today. No cough or sputum production. Patient is being continued on antibiotics. Laboratory data showed WBC improved to 11.3 hemoglobin 13.3 and platelets 283 currently on Unasyn and vanco. ID is on board. 12/26/2022 Patient is currently resting in bed. Awake alert and oriented times x3 no fever no chills. Currently pain is much improved. Patient did not have any involvement last few days. Able to pass flatus. Tolerating oral diet. General surgery and ID is on board. Laboratory reviewed. 12/27/2022 Patient is evaluated today resting in bed continues to report pain and discomfo rt to the gluteal abscess. Patient reports pain is controlled with dilaudid and norco. Scheduled to undergo I & D of the abscess today with general surgery. Patient remains on IV vancomycin and IV unasyn. ID is following the cultures and patient will remain until surgical cultures are final. White count has normalized. Kidney function is stable. Patient is afebrile, heart rate 66, blood pressure 124/76, 100% room air. 12/28/2022 Patient is evaluated today resting in bed. He reports improved pain overnight and continues on combination of toradol, norco and IV dilaudid. He underwent I and D which revealed a complicated abscess. Surgical cultures are pending. Patient continues on IV vancomycin and IV unasyn. ID following cultures. Patient remains afebrile. Review of Systems Constitutional: Denied any fatigue denied any fever. Cardio vascular: denied any chest pain, palpitations Gastrointestinal: denied any nausea, vomiting, diarrhea Pulmonary: Denied any shortness of breath cough Neurologic denied any new focal deficits All inpatient medications were reviewed and appropriate changes in these medications as dictated in the interval history and assessment and plan. PHYSICAL EXAMINATION: GENERAL: The patient is alert and oriented x3, not in any acute distress. Well developed, well nourished. HEENT: Pupils are round and equally reacting to light. EOMI. No scleral icterus. No conjunctival pallor. Normocephalic, atraumatic. No pharyngeal erythema. No thyromegaly. CARDIOVASCULAR: S1 and S2 present. No murmurs, rubs, or gallops. PULMONARY: Chest is clear to auscultation, no wheezing or crackles. ABDOMEN: Soft, nontender, nondistended, normoactive bowel sounds. No palpable organomegaly. MUSCULOSKELETAL: No joint swelling or deformity. EXTREMITIES: No cyanosis, clubbing, or pedal edema. NEUROLOGICAL: Gross neurological examination did not reveal any focal deficits. SKIN: No rashes. Post surgical dressing intact. Assessment and Plan Assessment Complicated left buttock/perianal cellultis and abscess status post I and D with surgical cultures pending. Sepsis secondary to above. Leukocytosis resolved DVT prophylaxis with heparin subcu GI prophylaxis Full Code Plan Continue on IV antibiotics per ID Pending deep tissue cultures for final discharge antibiotics Local woundcare Pain management The impression and plan of care has been dictated by Ann Marie Moncada Nurse Practitioner as directed. Dr. Floresita MD I have performed a history and physical examination and medical decision making of this patient, discussed the same with the dictator, and agree with the dictators assessment and plan as written, documented as a scribe. Based on total visit time, I have performed more than 50% of this visit. Objective - Vital Signs Vital signs: Vital Signs Temp 97.9 F 12/28/22 12:52 Pulse 68 12/28/22 12:52 Resp 16 12/28/22 12:52 BP 147/91 12/28/22 12:52 Pulse Ox 100 12/28/22 12:52 FiO2 Intake & Output 12/27/22 12/28/22 12/28/22 18:59 06:59 18:59 Intake Total 900 1450 Output Total 5 Balance 895 1450 Weight 87.77 kg Intake: IV 900 Intake, IV Titration 1450 Amount Ampicillin-Sulbactam 3 gm 200 In Sodium Chloride 0.9% 100 ml @ 200 mls/hr IVPB Q6H [facility] Rx#:[id number] Sodium Chloride 0.9% 1, 750 000 ml @ 75 mls/hr IV . [id number] [facility] Rx#:[id number] Vancomycin 1,750 mg In 500 Sodium Chloride 0.9% 500 ml 500 ml @ 167 mls/hr IVPB Q8HR [facility] Rx#: [id number] Output: Estimated Blood Loss 5 Other: Voiding Method Toilet Toilet Toilet # Voids 2 3 1 - Labs CBC & Chem 7: 12/28/22 05:58 12/27/22 06:13 Labs: Abnormal Lab Results - Last 24 Hours (Table) 12/28/22 Range/Units 05:58 WBC 10.8 H (3.8-10.6) k/uL RBC 4.29 L (4.30-5.90) m/uL Neutrophils # 8.0 H (1.3-7.7) k/uL Microbiology - Last 24 Hours (Table) 12/27/22 14:20 Anaerobic Culture - Preliminary Rectum 12/27/22 14:20 Wound Culture - Preliminary Rectum 12/27/22 14:18 Wound Culture - Preliminary Rectum 12/27/22 14:18 Anaerobic Culture - Preliminary Rectum 12/21/22 18:41 Blood Culture - Final Blood No Growth after 144 hours 12/21/22 18:18 Blood Culture - Final Blood No Growth after 144 hours Assessment and Plan Time with Patient: Less than 30
--- NOTE | 2022-12-28 16:19 | P.PN ---
Subjective Progress Note Date: 12/28/22 CHIEF COMPLAINT: Left buttock abscess HISTORY OF PRESENT ILLNESS: Patient is status post incision and drainage of the left buttock cellulitis with abscess. Patient reports his pain is controlled. Denies any nausea or vomiting. He has been up and ambulating. Afebrile. WBC is 10.8 PHYSICAL EXAM: VITAL SIGNS: Reviewed GENERAL: Well-developed in no acute distress. HEENT: No sclera icterus. Extraocular movements grossly intact. Moist buccal mucosa. Head is atraumatic, normocephalic. Hears conversational speech. No nasal drainage. NECK: Supple without lymphadenopathy. CHEST: Non-labored respirations and equal bilateral excursions. CARDIOVASCULAR: Palpable 2+ radial pulses. ABDOMEN: Soft. Nondistended. Nontender. MUSCULOSKELETAL: No clubbing or cyanosis. NEUROLOGIC: No focal or lateralizing signs. Cranial nerves II through XII grossly intact. PSYCH: Appropriate affect. Alert and oriented to person, place and time. Skin: Left buttock erythema and area of induration noted decrease in size. Minimal drainage noted on dressing ASSESSMENT: 1. Complicated left buttock/perianal cellulitis with abscess 2. Sepsis on admission PLAN: -Continue antibiotics per ID service -Awaiting cultures -Continue supportive care -Encourage patient to shower Physician Licensed Vocational Nurse note has been reviewed by physician. Signing provider agrees with the documented findings, assessment, and plan of care. Please see additional documentation Anaerobic and aerobic cultures sent. No identifiable organisms grown at this time. Continue IV antibiotics. Continue sitz bath. Discharge pending clearance from infectious disease regarding antibiotic management. Objective - Vital Signs Vital signs: Vital Signs Temp 97.9 F 12/28/22 12:52 Pulse 68 12/28/22 12:52 Resp 16 12/28/22 12:52 BP 147/91 12/28/22 12:52 Pulse Ox 100 12/28/22 12:52 FiO2 Intake & Output 12/27/22 12/28/22 12/28/22 18:59 06:59 18:59 Intake Total 900 1450 Output Total 5 Balance 895 1450 Weight 87.77 kg Intake: IV 900 Intake, IV Titration 1450 Amount Ampicillin-Sulbactam 3 gm 200 In Sodium Chloride 0.9% 100 ml @ 200 mls/hr IVPB Q6H [facility] Rx#:[id number] Sodium Chloride 0.9% 1, 750 000 ml @ 75 mls/hr IV . [id number] [facility] Rx#:[id number] Vancomycin 1,750 mg In 500 Sodium Chloride 0.9% 500 ml 500 ml @ 167 mls/hr IVPB Q8HR [facility] Rx#: [id number] Output: Estimated Blood Loss 5 Other: Voiding Method Toilet Toilet Toilet # Voids 2 3 1 - Labs CBC & Chem 7: 12/28/22 05:58 12/27/22 06:13 Labs: Abnormal Lab Results - Last 24 Hours (Table) 12/28/22 Range/Units 05:58 WBC 10.8 H (3.8-10.6) k/uL RBC 4.29 L (4.30-5.90) m/uL Neutrophils # 8.0 H (1.3-7.7) k/uL Microbiology - Last 24 Hours (Table) 12/27/22 14:20 Gram Stain - Preliminary Rectum Wound Culture - Preliminary 12/27/22 14:18 Gram Stain - Preliminary Rectum Wound Culture - Preliminary 12/27/22 14:20 Anaerobic Culture - Preliminary Rectum 12/27/22 14:18 Anaerobic Culture - Preliminary Rectum 12/21/22 18:41 Blood Culture - Final Blood No Growth after 144 hours 12/21/22 18:18 Blood Culture - Final Blood No Growth after 144 hours
--- NOTE | 2022-12-28 19:20 | CDI ---
Documentation Clarification Form Date: 12/28/2022 7:18:52 PM From: Rebecca Arevalo RN, CCDS Email: [email or web address] Admit Date: 12/21/2022 5:42:00 PM Patient Name: Cliff Brandt Visit Number: [id number] Discharge Date: ATTENTION: The Clinical Documentation Specialists (CDI) and [facility] Coding Staff appreciate your assistance in clarifying documentation. Please respond to the clarification below the line at the bottom and electronically sign. The CDI & [facility] Coding staff will review the response and follow-up if needed. Please note: Queries are made part of the Legal Health Record. If you have any questions, please contact the author of this message via ITS. Dr. Stephani Murray mechanical debridement is documented in the procedure note. Additional clarification regarding the procedure is requested. History/Risk Factors: Complicated left buttock/perianal cellulitis with abscess. Sepsis on admission. Clinical Indicators: Op note: "A transverse 2 cm incision along the skin tension line was made using #15 blade. Loculations were disrupted using hemostats and limited digital dissection anteriorly of the perineum. Anaerobic and aerobic cultures were obtained. Hydrogen peroxide followed by 1 L normal saline Pulsavac for mechanical debridement was performed. Hemostasis was checked. Treatment: "Incision and drainage of complicated left perineum/buttock cellulitis with abscess. Water jet lavage for mechanical debridement, 1 L, 2 cm wound." Please clarify the type of procedure performed with depth of the debridement: [ ] Excisional debridement of (the removal of necrotic, devitalized tissue or slough by means of cutting away of tissue): [X ] Non-excisional debridement (the removal of necrotic, devitalized tissue or slough by means of flushing, brushing, or washing. (Irrigation) [ ] Other; please specify [ ] Unable to determine Depth of Debridement: [ ] Skin [ X ] Subcutaneous tissue [ ] Fascia [ ] Muscle [ ] Bone Five elements required for accurate and compliant documentation of a debridement: Technique used (e.g., excisional, excised, cutting, brushing, jet lavage etc.) Instrument(s) used (e.g., scalpel, curette, etc.) Nature of the tissue removed (e.g., necrotic, devitalized tissues, non-viable tissue, etc.) Appearance and size of the wound (e.g., down to fresh bleeding tissue, 7cm x 10cm, etc.) Depth of the debridement* (e.g., skin, subcutaneous tissue, fascia, muscle, bone, etc.) 12/28/22 @[facility]
[2022-12-28] MEDS ORDERED: HYDROmorphone 1 MG/ML 1 ML SYRINGE IM PRN (19:51)
[2022-12-28] MEDS ORDERED: HYDROmorphone 1 MG/ML 1 ML SYRINGE IVP PRN (21:10)
[2022-12-28] MEDS: TEMAZEPAM 7.5 MG CAP PO PRN (21:14)
[2022-12-28] MEDS: SENNOSIDES-DOCUSATE SODIUM 1 EACH TAB PO SCH (21:14)
--- NOTE | 2022-12-28 21:33 | P.PN ---
Subjective Progress Note Date: 12/28/22 Principal diagnosis: Left perirectal abscess Patient is a 37-year-old male presenting to the hospital with left perirectal pain and discomfort patient has been diagnosed with a left perirectal cellulitis and phlegmon but CT 2 failed to reveal any evidence of abscess. Patient is status post drainage of the left perirectal abscess complicated on 12/27/2022 On today's evaluation and that is 12/28/2022, the patient remains to be afebrile, the patient pain to the left perirectal area is currently controlled the pain medication , there patient denies having any nausea no vomiting , the patient denies chest pain or shortness of breath or cough no diarrhea Objective - Vital Signs Vital signs: Vital Signs Temp 97.4 F L 12/28/22 06:40 Pulse 65 12/28/22 06:40 Resp 16 12/28/22 09:00 BP 122/74 12/28/22 06:40 Pulse Ox 99 12/28/22 06:40 FiO2 Intake & Output 12/27/22 12/28/22 12/28/22 18:59 06:59 18:59 Intake Total 900 1450 Output Total 5 Balance 895 1450 Intake: IV 900 Intake, IV Titration 1450 Amount Ampicillin-Sulbactam 3 gm 200 In Sodium Chloride 0.9% 100 ml @ 200 mls/hr IVPB Q6H [facility] Rx#:[id number] Sodium Chloride 0.9% 1, 750 000 ml @ 75 mls/hr IV . [id number] [facility] Rx#:[id number] Vancomycin 1,750 mg In 500 Sodium Chloride 0.9% 500 ml 500 ml @ 167 mls/hr IVPB Q8HR [facility] Rx#: [id number] Output: Estimated Blood Loss 5 Other: Voiding Method Toilet Toilet Toilet # Voids 2 3 1 - Exam GENERAL DESCRIPTION: Middle-age male lying in bed in no distress RESPIRATORY SYSTEM: Unlabored breathing , decreased breath sounds at bases HEART: S1 S2 regular rate and rhythm , ABDOMEN: Soft , no tenderness, left perirectal area is currently dressed EXTREMITIES: No edema feet - Labs CBC & Chem 7: 12/28/22 05:58 12/27/22 06:13 Labs: Abnormal Lab Results - Last 24 Hours (Table) 12/27/22 12/28/22 Range/Units 06:13 05:58 WBC 10.8 H (3.8-10.6) k/uL RBC 3.95 L 4.29 L (4.40-5.60) X 10*6/uL Hgb 12.4 L (13.0-17.0) g/dL Hct 36.8 L (39.6-50.0) % Neutrophils # 8.0 H (1.3-7.7) k/uL Microbiology - Last 24 Hours (Table) 12/21/22 18:41 Blood Culture - Final Blood No Growth after 144 hours 12/21/22 18:18 Blood Culture - Final Blood No Growth after 144 hours Assessment and Plan (1) Perirectal abscess Current Visit: Yes Status: Acute Code(s): K61.1 - RECTAL ABSCESS SNOMED Code(s): 03914009 Plan: 1patient was in the hospital with sepsis in this we did have a fever elevated white count source of left perirectal abscess will need to cover for both gram- positive skin yaima as well as gram-negative pathogen in view of the location of this abscess CT did not show any intra-abdominal abscess, patient did have a repeat CT on 12/23/2022 did not show any organizing abscess formation 2-patient did have soft tissue ultrasound which did shows evidence of fluid collection possible abscess , patient is status post surgical drainage and deep culture which are currently pending, patient to continue with vancomycin and Unasyn with the discharge antibiotic on the basis of final culture Questions and concerns were answered Time with Patient: Less than 30
[2022-12-29] MEDS: VANCOMYCIN 1,750 MG in SODIUM CHLORIDE 0.9% 500 ML 500 ML IVPB SCH ×4 (00:28→23:40)
[2022-12-29] MEDS: KETOROLAC 15 MG/ML 1 ML VIAL IVP SCH ×3 (00:28→11:42)
[2022-12-29] MEDS: AMPICILLIN-SULBACTAM 3 GM in SODIUM CHLORIDE 0.9% 100 ML IVPB SCH ×4 (02:34→20:16)
[2022-12-29] MEDS ORDERED: VANCOMYCIN TROUGH DUE 1 EACH MISC MISCELLANE ONE (07:00)
[2022-12-29 07:55] LABS: African American GFR (CKD) >90 (>60 ml/min/1.73 sqM); Non-African American GFR(CKD) >90 (>60 ml/min/1.73 sqM)
[2022-12-29] MEDS: HEPARIN SODIUM,PORCINE/PF 5,000 UNIT/0.5 ML SYRINGE SQ SCH ×2 (08:34→20:16)
[2022-12-29] MEDS: PANTOPRAZOLE 40 MG TABLET PO SCH (08:35)
[2022-12-29] MEDS: LIDOCAINE 2% GLYDO JELLY 6 ML APPL MISCELLANE SCH ×2 (08:36→20:16)
[2022-12-29] MEDS: SODIUM CHLORIDE 0.9% 1,000 ML IV SCH (11:42)
--- NOTE | 2022-12-29 14:50 | P.PN ---
Subjective Progress Note Date: 12/29/22 Principal diagnosis: Left perirectal abscess Patient is a 37-year-old male presenting to the hospital with left perirectal pain and discomfort patient has been diagnosed with a left perirectal cellulitis and phlegmon but CT 2 failed to reveal any evidence of abscess. Patient is status post drainage of the left perirectal abscess complicated on 12/27/2022 On today's evaluation and that is 12/29/2022, the patient continues to be afebrile, the patient pain to the left perirectal area is controlled the pain medication and the patient denies having any drainage from the area , there patient denies having any nausea no vomiting , the patient denies chest pain or shortness of breath or cough no diarrhea Objective - Vital Signs Vital signs: Vital Signs Temp 97.9 F 12/29/22 07:15 Pulse 70 12/29/22 07:15 Resp 18 12/29/22 07:15 BP 138/89 12/29/22 07:15 Pulse Ox 100 12/29/22 07:15 FiO2 Intake & Output 12/28/22 12/29/22 12/29/22 18:59 06:59 18:59 Intake Total 180 Balance 180 Weight 87.77 kg Intake: Oral 180 Other: Voiding Method Toilet Toilet # Voids 1 3 - Exam GENERAL DESCRIPTION: Middle-age male lying in bed in no distress RESPIRATORY SYSTEM: Unlabored breathing , decreased breath sounds at bases HEART: S1 S2 regular rate and rhythm , ABDOMEN: Soft , no tenderness, left perirectal area overall swelling redness has improved still have significant area of induration EXTREMITIES: No edema feet - Labs CBC & Chem 7: 12/28/22 05:58 12/29/22 06:56 Labs: Microbiology - Last 24 Hours (Table) 12/27/22 14:18 Gram Stain - Preliminary Rectum Wound Culture - Preliminary 12/27/22 14:20 Gram Stain - Preliminary Rectum Wound Culture - Preliminary 12/27/22 14:20 Anaerobic Culture - Preliminary Rectum 12/27/22 14:18 Anaerobic Culture - Preliminary Rectum Assessment and Plan (1) Perirectal abscess Current Visit: Yes Status: Acute Code(s): K61.1 - RECTAL ABSCESS SNOMED Code(s): 56438690 Plan: 1patient was in the hospital with sepsis in this we did have a fever elevated white count source of left perirectal abscess will need to cover for both gram- positive skin yaima as well as gram-negative pathogen in view of the location of this abscess CT did not show any intra-abdominal abscess, patient did have a repeat CT on 12/23/2022 did not show any organizing abscess formation 2-patient did have soft tissue ultrasound which did shows evidence of fluid collection possible abscess , patient is status post surgical drainage and deep culture which are currently pending, patient has shown clinical improvement still have area of induration we will continue with vancomycin and Unasyn for another 24 hour before transitioning to oral Augmentin, discussed with ONLINE COMMUNITY MANAGER for admitting team Time with Patient: Less than 30
--- NOTE | 2022-12-29 14:56 | P.PN ---
Subjective Progress Note Date: 12/29/22 CHIEF COMPLAINT: Left buttock abscess HISTORY OF PRESENT ILLNESS: Patient is status post incision and drainage of the left buttock cellulitis with abscess. Patient reports his pain is controlled. Denies any nausea or vomiting. He has been up and ambulating. Patient did shower yesterday. Afebrile. WBC is 10.8 culture results pending PHYSICAL EXAM: VITAL SIGNS: Reviewed GENERAL: Well-developed in no acute distress. HEENT: No sclera icterus. Extraocular movements grossly intact. Moist buccal mucosa. Head is atraumatic, normocephalic. Hears conversational speech. No nasal drainage. NECK: Supple without lymphadenopathy. CHEST: Non-labored respirations and equal bilateral excursions. CARDIOVASCULAR: Palpable 2+ radial pulses. ABDOMEN: Soft. Nondistended. Nontender. MUSCULOSKELETAL: No clubbing or cyanosis. NEUROLOGIC: No focal or lateralizing signs. Cranial nerves II through XII grossly intact. PSYCH: Appropriate affect. Alert and oriented to person, place and time. ASSESSMENT: 1. Complicated left buttock/perianal cellulitis with abscess 2. Sepsis on admission PLAN: -Continue antibiotics per ID service -Awaiting culture results to finalize -Continue supportive care -Encourage patient to shower Physician Air Hammer Stripper note has been reviewed by physician. Signing provider agrees with the documented findings, assessment, and plan of care. CHIEF COMPLAINT: Right buttock pain HISTORY OF PRESENT ILLNESS: The patient is a 37-year-old male status post drainage of left buttock abscess. Pain is controlled. ROS: No reports of nausea and vomiting. No fevers or chills. No new chest pain. No productive sputum PHYSICAL EXAM: VITAL SIGNS: Reviewed CONSTITUTIONAL: Well developed and in no acute distress. EYES: Conjuctivae without sclera icterus. Extraocular movements grossly intact. HEAD, EARS, NOSE, THROAT: Moist buccal mucosa. Head is atraumatic, nor mocephalic. Hears conversational speech. No nasal drainage. RESPIRATORY: Non-labored respirations and equal bilateral excursions. CARDIOVASCULAR: Palpable 2+ radial pulses. ABDOMEN: No peritonitis. MUSCULOSKELETAL: No gross deformity of the lower extremities noted. No clubbing. No cyanosis. SKIN: Good skin turgor. Well perfused. NEUROLOGIC: Cranial nerves II through XII grossly intact. No focal or lateralizing signs. PSYCH: Appropriate affect. Alert and oriented to person, place and time. CLINICAL LABS: Reviewed. WBC normal MICROBIOLOGY PENDING ASSESSMENT: 1. Left perirectal pain with cellulitis 2. Left buttock cellulitis/swelling PLAN: 1. Antibiotic and discharge pending antibiotic management. 2. Continue sitz baths twice daily Objective - Vital Signs Vital signs: Vital Signs Temp 97.8 F 12/29/22 14:00 Pulse 90 12/29/22 14:00 Resp 18 12/29/22 14:00 BP 128/92 12/29/22 14:00 Pulse Ox 98 12/29/22 14:00 FiO2 Intake & Output 12/28/22 12/29/22 12/29/22 18:59 06:59 18:59 Intake Total 180 Balance 180 Weight 87.77 kg Intake: Oral 180 Other: Voiding Method Toilet Toilet # Voids 1 3 4 - Labs CBC & Chem 7: 12/28/22 05:58 12/30/22 05:57 Labs: Microbiology - Last 24 Hours (Table) 12/27/22 14:18 Gram Stain - Preliminary Rectum Wound Culture - Preliminary 12/27/22 14:20 Gram Stain - Preliminary Rectum Wound Culture - Preliminary 12/27/22 14:20 Anaerobic Culture - Preliminary Rectum 12/27/22 14:18 Anaerobic Culture - Preliminary Rectum
--- NOTE | 2022-12-29 15:18 | P.PN ---
Subjective Progress Note Date: 12/29/22 Patient is a 37-year-old male with no significant past medical history presents ER with complaints of rectal pain for the past 5 days. Patient has been having increasing pain mainly in the left perirectal area. Denies any purulent discharge or bleeding noted. Patient did have low-grade fever 100.2 and was tachycardic. Denies any abdominal pain. No nausea vomiting or diarrhea. Denies any recent illnesses. No chest pain or shortness of breath. Denies any history of IVDU. No prior history of hepatitis or HIV. CT of the abdomen pelvis showed phlegmonous mass within the left perirectal region without definitive organizing fluid collection. Evaluation is limited without contrast. No acute intra-abdominal process. Laboratory showed WBC 20.0 hemoglobin 14.1 platelets 240 Sodium 137 potassium 3.9 chloride 99 bicarb is 26 BUN 16 and creatinine 1.14 and calcium 9.2 blood sugar is 102 12/24/2022 Patient is currently lying in the bed. Awake alert and oriented x3. Rectal pain is improving. Able to pass flatus and no bowel movement last few days. Patient has been afebrile. Leukocytosis is improving slowly. Denied any nausea or vomiting or abdominal pain or diarrhea. No chest pain or shortness of breath. Laboratory test showed WBC 16.1 hemoglobin 12.7 and platelets 250 ID and general surgery is on board. Currently on IV antibiotics with Unasyn and vanco. 12/25/2022 Patient is currently lying in bed. Awake alert oriented x3.. Rectal pain is improving. Patient able to pass flatus. Afebrile. No nausea vomiting abdominal diarrhea. Was able to tolerate oral diet today. No cough or sputum production. Patient is being continued on antibiotics. Laboratory data showed WBC improved to 11.3 hemoglobin 13.3 and platelets 283 currently on Unasyn and vanco. ID is on board. 12/26/2022 Patient is currently resting in bed. Awake alert and oriented times x3 no fever no chills. Currently pain is much improved. Patient did not have any involvement last few days. Able to pass flatus. Tolerating oral diet. General surgery and ID is on board. Laboratory reviewed. 12/27/2022 Patient is evaluated today resting in bed continues to report pain and discomfo rt to the gluteal abscess. Patient reports pain is controlled with dilaudid and norco. Scheduled to undergo I & D of the abscess today with general surgery. Patient remains on IV vancomycin and IV unasyn. ID is following the cultures and patient will remain until surgical cultures are final. White count has normalized. Kidney function is stable. Patient is afebrile, heart rate 66, blood pressure 124/76, 100% room air. 12/28/2022 Patient is evaluated today resting in bed. He reports improved pain overnight and continues on combination of toradol, norco and IV dilaudid. He underwent I and D which revealed a complicated abscess. Surgical cultures are pending. Patient continues on IV vancomycin and IV unasyn. ID following cultures. Patient remains afebrile. 12/29/2022 Patient is evaluated today ambulating in the hallway. He reports pain overall is controlled, he has not used the IV dilaudid in over 24 hours, and using oral pain medication. Reports sleeping better last night. Cultures are negative so far. He remains on IV vancomyin and IV unasyn. Wound is examined today no erythema or swelling, there is some continued induration. The wound is draining minimal serous drainage. Review of Systems Constitutional: Denied any fatigue denied any fever. Cardio vascular: denied any chest pain, palpitations Gastrointestinal: denied any nausea, vomiting, diarrhea Pulmonary: Denied any shortness of breath cough Neurologic denied any new focal deficits All inpatient medications were reviewed and appropriate changes in these medications as dictated in the interval history and assessment and plan. PHYSICAL EXAMINATION: GENERAL: The patient is alert and oriented x3, not in any acute distress. Well developed, well nourished. HEENT: Pupils are round and equally reacting to light. EOMI. No scleral icterus. No conjunctival pallor. Normocephalic, atraumatic. No pharyngeal erythema. No thyromegaly. CARDIOVASCULAR: S1 and S2 present. No murmurs, rubs, or gallops. PULMONARY: Chest is clear to auscultation, no wheezing or crackles. ABDOMEN: Soft, nontender, nondistended, normoactive bowel sounds. No palpable organomegaly. MUSCULOSKELETAL: No joint swelling or deformity. EXTREMITIES: No cyanosis, clubbing, or pedal edema. NEUROLOGICAL: Gross neurological examination did not reveal any focal deficits. SKIN: No rashes. Post surgical dressing intact. Wound is approximated no redness, no swelling, continues with area of induration. Assessment and Plan Assessment Complicated left buttock/perianal cellultis and abscess status post I and D with surgical cultures pending. Sepsis secondary to above. Leukocytosis resolved DVT prophylaxis with heparin subcu GI prophylaxis Full Code Plan Continue on IV antibiotics per ID Pending deep tissue cultures for final discharge antibiotics Pain management Possible D/C in the next 24 to 48 hours The impression and plan of care has been dictated by Ann Marie Moncada, Nurse Practitioner as directed. Dr. Floresita MD I have performed a history and physical examination and medical decision making of this patient, discussed the same with the dictator, and agree with the dictators assessment and plan as written, documented as a scribe. Based on total visit time, I have performed more than 50% of this visit. Objective - Vital Signs Vital signs: Vital Signs Temp 97.8 F 12/29/22 14:59 Pulse 98 12/29/22 14:59 Resp 18 12/29/22 14:59 BP 128/92 12/29/22 14:59 Pulse Ox 98 12/29/22 14:59 FiO2 Intake & Output 12/28/22 12/29/22 12/29/22 18:59 06:59 18:59 Intake Total 180 Balance 180 Weight 87.77 kg Intake: Oral 180 Other: Voiding Method Toilet Toilet # Voids 1 3 4 - Labs CBC & Chem 7: 12/28/22 05:58 12/29/22 06:56 Labs: Microbiology - Last 24 Hours (Table) 12/27/22 14:18 Gram Stain - Preliminary Rectum Wound Culture - Preliminary 12/27/22 14:20 Gram Stain - Preliminary Rectum Wound Culture - Preliminary 12/27/22 14:20 Anaerobic Culture - Preliminary Rectum 12/27/22 14:18 Anaerobic Culture - Preliminary Rectum Assessment and Plan Time with Patient: Less than 30
[2022-12-29 19:58] VITALS: RESP 17
[2022-12-29] MEDS: SENNOSIDES-DOCUSATE SODIUM 1 EACH TAB PO SCH (20:16)
[2022-12-29] MEDS: TEMAZEPAM 7.5 MG CAP PO PRN (21:51)
[2022-12-30] MEDS: AMPICILLIN-SULBACTAM 3 GM in SODIUM CHLORIDE 0.9% 100 ML IVPB SCH ×2 (01:40→08:03)
[2022-12-30] MEDS: SODIUM CHLORIDE 0.9% 1,000 ML IV SCH (01:41)
[2022-12-30 07:35] LABS: African American GFR (CKD) >90 (>60 ml/min/1.73 sqM); Non-African American GFR(CKD) >90 (>60 ml/min/1.73 sqM)
[2022-12-30 07:55] VITALS: BP 143/73; PULSE 68; TEMP 98
[2022-12-30] MEDS: PANTOPRAZOLE 40 MG TABLET PO SCH (08:03)
[2022-12-30] MEDS: HEPARIN SODIUM,PORCINE/PF 5,000 UNIT/0.5 ML SYRINGE SQ SCH (08:03)
[2022-12-30] MEDS: LIDOCAINE 2% GLYDO JELLY 6 ML APPL MISCELLANE SCH (08:04)
[2022-12-30] MEDS: VANCOMYCIN 1,750 MG in SODIUM CHLORIDE 0.9% 500 ML 500 ML IVPB SCH (09:15)
--- NOTE | 2022-12-30 11:26 | P.PN ---
Subjective Progress Note Date: 12/30/22 CHIEF COMPLAINT: Left buttock abscess HISTORY OF PRESENT ILLNESS: Patient is status post incision and drainage of the left buttock cellulitis with abscess. Patient reports his pain is controlled. Denies any nausea or vomiting. He has been up and ambulating. Patient is eager for discharge. Culture results are pending. Afebrile. PHYSICAL EXAM: VITAL SIGNS: Reviewed GENERAL: Well-developed in no acute distress. HEENT: No sclera icterus. Extraocular movements grossly intact. Moist buccal mucosa. Head is atraumatic, normocephalic. Hears conversational speech. No nasal drainage. NECK: Supple without lymphadenopathy. CHEST: Non-labored respirations and equal bilateral excursions. CARDIOVASCULAR: Palpable 2+ radial pulses. ABDOMEN: Soft. Nondistended. Nontender. MUSCULOSKELETAL: No clubbing or cyanosis. NEUROLOGIC: No focal or lateralizing signs. Cranial nerves II through XII grossly intact. PSYCH: Appropriate affect. Alert and oriented to person, place and time. ASSESSMENT: 1. Complicated left buttock/perianal cellulitis with abscess 2. Sepsis on admission PLAN: -Patient can be discharge from surgical standpoint when medically cleared -Discharge antibiotics per ID service -Continue supportive care Physician Lace Roller Operator note has been reviewed by physician. Signing provider agrees with the documented findings, assessment, and plan of care. See additional documentation: Patient is clinically doing well. Overall stable for discharge. Continue antibiotics and sitz bath as outpatient with follow up in 1 week. Objective - Vital Signs Vital signs: Vital Signs Temp 98.0 F 12/30/22 07:54 Pulse 68 12/30/22 07:54 Resp 17 12/30/22 00:44 BP 143/73 12/30/22 07:54 Pulse Ox 96 12/30/22 07:54 FiO2 Intake & Output 12/29/22 12/30/22 12/30/22 18:59 06:59 18:59 Other: # Voids 4 2 - Labs CBC & Chem 7: 12/28/22 05:58 12/30/22 05:57 Labs: Microbiology - Last 24 Hours (Table) 12/27/22 14:18 Gram Stain - Preliminary Rectum Wound Culture - Preliminary 12/27/22 14:20 Gram Stain - Preliminary Rectum Wound Culture - Preliminary
--- NOTE | 2022-12-30 14:31 | P.PN ---
Subjective Progress Note Date: 12/30/22 Principal diagnosis: Left perirectal abscess Patient is a 37-year-old male presenting to the hospital with left perirectal pain and discomfort patient has been diagnosed with a left perirectal cellulitis and phlegmon but CT 2 failed to reveal any evidence of abscess. Patient is status post drainage of the left perirectal abscess complicated on 12/27/2022 On today's evaluation and that is 12/30/2022, the patient remains to be afebrile, the patient pain to the left perirectal area has decreased in intensity and the patient denies having any drainage from the area , there patient denies having any nausea no vomiting , the patient denies chest pain or shortness of breath or cough no diarrhea Objective - Vital Signs Vital signs: Vital Signs Temp 98.0 F 12/30/22 07:54 Pulse 68 12/30/22 07:54 Resp 17 12/30/22 00:44 BP 143/73 12/30/22 07:54 Pulse Ox 96 12/30/22 07:54 FiO2 Intake & Output 12/29/22 12/30/22 12/30/22 18:59 06:59 18:59 Other: # Voids 4 2 - Exam GENERAL DESCRIPTION: Middle-age male lying in bed in no distress RESPIRATORY SYSTEM: Unlabored breathing , decreased breath sounds at bases HEART: S1 S2 regular rate and rhythm , ABDOMEN: Soft , no tenderness, - Labs CBC & Chem 7: 12/28/22 05:58 12/30/22 05:57 Labs: Microbiology - Last 24 Hours (Table) 12/27/22 14:18 Gram Stain - Preliminary Rectum Wound Culture - Preliminary 12/27/22 14:20 Gram Stain - Final Rectum Wound Culture - Final Assessment and Plan (1) Perirectal abscess Status: Acute Code(s): K61.1 - RECTAL ABSCESS SNOMED Code(s): 33019500 Plan: 1patient was in the hospital with sepsis in this we did have a fever elevated white count source of left perirectal abscess will need to cover for both gram-positive skin yaima as well as gram-negative pathogen in view of the location of this abscess CT did not show any intra-abdominal abscess, patient did have a repeat CT on 12/23/2022 did not show any organizing abscess formation 2-patient did have soft tissue ultrasound which did shows evidence of fluid co llection possible abscess , patient is status post surgical drainage and deep culture which are negative for resistant pathogen patient has shown clinical improvement he will finish 10 day Course of oral Augmentin and close out Patient follow-up Time with Patient: Less than 30
--- NOTE | 2022-12-30 23:13 | P.DS ---
Providers Date of admission: 12/21/22 17:42 Attending physician: Tom Grant Consults: 12/21/22 17:50 Consult Physician Routine Consulting Provider: Cleveland Nolasco Consult Reason/Comments: gluteal abscess Do you want consulting provider notified?: Yes 12/22/22 15:53 Consult Physician Routine Consulting Provider: Reva Schmidt Consult Reason/Comments: medical management Do you want consulting provider notified?: Yes 12/24/22 12:22 Consult Physician Routine Consulting Provider: Stephani Ramsey Consult Reason/Comments: Perirectal abscess Do you want consulting provider notified?: Already Contacted Primary care physician: Stated None Hospital Course: Final Diagnosis Complicated left buttock/perianal cellultis and abscess status post I and D with surgical cultures pending. Sepsis secondary to above. Leukocytosis resolved Full Code Discharge Disposition Patient is stable for discharge home. Patient to complete 10 days of bactrim DS twice a day. Patient to follow up with Dr Nolasco an appointment has been made on January 10 at 3pm. Patient has a follow up with general surgery. Patient does not have a PCP and has been referred to Dr. Caba on discharge. Patient instructed to complete sitz bath daily until seen by surgeon. Hospital Course Patient is a 37-year-old male with no significant past medical history presents ER with complaints of rectal pain for the past 5 days. Patient has been having increasing pain mainly in the left perirectal area. Denies any purulent discharge or bleeding noted. Patient did have low-grade fever 100.2 and was tachycardic. Denies any abdominal pain. No nausea vomiting or diarrhea. Denies any recent illnesses. No chest pain or shortness of breath. Denies any history of IVDU. No prior history of hepatitis or HIV. CT of the abdomen pelvis showed phlegmonous mass within the left perirectal region without definitive organizing fluid collection. Evaluation is limited without contrast. No acute intra-abdominal process. Patient had leukocytosis of 20 on admission. He was admitted for cellulitis and concern for abscess and sepsis and started on IV antibiotics. Patient had follow up soft tissue ultraound which does reveal complex fluid collection compatible with abscess sizing 4.2 x 2.5 x 2.0 cm. General surgery consulted and patient underwent I and D which revealed a complicated abscess in the left buttock/gluteal region. There is surrounding cellulitis and induration. Wound cultures have remained negative. Patient clinically improved, pain improved and erythema surrounding the surgical incision has improved. The area of induration is improving. White count has normalized. Kidney function has remained stable. Patient to discharge on oral antibiotics and above mentioned follow up appointment. Please see mediation reconciliation for a list of current medication. Thank you for allowing us to participate in the care of this patient. The impression and plan of care has been dictated by Ann Marie Moncada, Nurse Practitioner as directed. Dr. Floresita MD I have performed a history and physical examination and medical decision making of this patient, discussed the same with the dictator, and agree with the dictators assessment and plan as written, documented as a scribe. Based on total visit time, I have performed more than 50% of this visit. Patient Condition at Discharge: Stable Plan - Discharge Summary Discharge Rx Participant: No New Discharge Prescriptions: New Ibuprofen [Motrin] 600 mg PO Q8HR PRN #30 tab PRN Reason: Pain Amoxic-Pot Clav 875-125Mg [Augmentin 875-125] 1 tab PO Q12HR 10 Days #20 tab Famotidine [Pepcid] 20 mg PO DAILY #10 tablet Acetaminophen Tab [Tylenol Tab] 1,000 mg PO Q6HR PRN #30 tablet PRN Reason: Pain Discharge Medication List Acetaminophen Tab [Tylenol Tab] 1,000 mg PO Q6HR PRN #30 tablet 12/30/22 [Rx] Amoxic-Pot Clav 875-125Mg [Augmentin 875-125] 1 tab PO Q12HR 10 Days #20 tab 12/30/22 [Rx] Famotidine [Pepcid] 20 mg PO DAILY #10 tablet 12/30/22 [Rx] Ibuprofen [Motrin] 600 mg PO Q8HR PRN #30 tab 12/30/22 [Rx] Follow up Appointment(s)/Referral(s): Stephani Ramsey MD [STAFF PHYSICIAN] - 01/11/23 8:00 am (via telehealth over the phone, office will call you at scheduled appt time) Irais Caba MD [STAFF PHYSICIAN] - 01/20/23 9:00 am (office will call with registration) None,Stated [Primary Care Provider] - 1-2 days Cleveland Nolasco MD [STAFF PHYSICIAN] - 01/10/23 3:00 pm (insurance card and photo ID) Patient Instructions/Handouts: Abscess (GEN), Incision and Drainage (DC) Activity/Diet/Wound Care/Special Instructions: Sitz baths twice daily until seen by your surgeon Discharge/Stand Alone Forms: Work/Release Restrictions Form Discharge Disposition: HOME SELF-CARE
--- NOTE | 2022-12-31 15:50 | P.PN ---
Progress Note - Text Progress Note Date: 12/31/22 To whom it may concern: Cliff Brandt is under my surgical care. He may not return to work until January 17 without restrictions. Regards, Stephani Ramsey MD FACS
== END 2022-12-30 14:27 | disposition home or self-care (01) | DRG 854 ==
LOC: EC 15:17 → 4SSUR 17:42 → INTOOBSV 17:42 → OBSVTOIN 17:42 → 4SSUR 12-28 23:01
PROVIDERS: ADMIT Internal Medicine; ATTEND Internal Medicine
PROC: 0JD90ZZ Extraction of Buttock Subcutaneous Tissue and Fascia, Open Approach (ICD-10-PCS; principal; 2022-12-27 12:25)
DX: A41.9 Sepsis, unspecified organism (principal); K61.1 Rectal abscess; L02.31 Cutaneous abscess of buttock; L03.317 Cellulitis of buttock; K21.9 Gastro-esophageal reflux disease without esophagitis; Z79.899 Other long term (current) drug therapy
CPT/HCPCS: 36415; 74176; 74177; 80048; 80053; 80202; 82565; 83605; 85025; 87040; 87070; 87075; 87205; 96365; 99284